=== PATIENT | female | born 1965 | race Caucasian/White ===

== ENCOUNTER 2024-04-08 08:19 | Outpatient (AMB) | payer OTHER, SELFPAY ==
--- NOTE | 2024-04-08 08:20 | MHC.OFFVIS ---
Vital Signs 04/08/24 08:34 Height 5 ft 3 in Weight 150 lb 9.211 oz BMI 26.7 BP 100/62 Blood Pressure Location Lt brachial Position Sitting Respiration 16 Pulse 67 Pulse Source Pulse Oximeter Pulse Oximetry (%) 98 Oxygen Delivery Method Room Air Intake Visit Reasons: RA/ATC MR RECIEVED Intake Note: Patient presents for RA. Lots of joint pain especially right hand, right elbow and right wrist. Feeling very exhausted. Allergies cetirizine [From Zyrtec] Allergy (Mild, Verified 04/08/24 08:26) Nausea fluticasone [From Flonase] Allergy (Verified 04/08/24 08:04) Unknown Penicillins Allergy (Verified 04/08/24 08:04) Unknown Gluten Intolerance Allergy (Uncoded 04/08/24 08:04) Unknown Percocet Allergy (Uncoded 04/08/24 08:04) Unknown Singular Allergy (Uncoded 04/08/24 08:04) Unknown HPI HPI RA/ATC MR RECIEVED: Details: Xeljanz started after last visit. 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 She got covid-19 after vacation with symptom of fatigue. Then her son came home with covid-19 and she was really sick. She took paxlovid. Xeljanz was held for a few weeks. She has now been on Xeljanz consistently for at least 2 and half months. Unable to lift using right hand. Unable to bend right hand. Left hand is weak unable to vegetable picker pen and hold it. Pain in multiple areas in her shoulders, elbows. Knees are swollen. Celebrex caused nausea, rhinorhea, diarrhea, gassiness and abdominal pain/cramping. Review of Systems Const All systems reviewed & are unremarkable except as noted in HPI and below Physical Exam Vital Signs: Last Vital Signs Pulse 67 04/08/24 08:34 Resp 16 04/08/24 08:34 BP 100/62 04/08/24 08:34 Pulse Ox 98 04/08/24 08:34 Oxygen Delivery Method Room Air 04/08/24 08:34 BMI result Body Mass Index 26.7 Const Other: General: Comfortable CVS: RRR Respiratory: clear to auscultation bilaterally. Good respiratory effort Skin: No lesions seen MSK: Tender to palpate bilateral MCPs, PIP knees, wrists. She has fused right wrist. Limited mobility of left wrist due to pain. Tender elbows, shoulders, knees, ankles, MTPs. Synovitis present in bilateral knees right worse than left. She has good range of motion of her elbows and her shoulders. Knee flexion is limited to 60 degrees due to pain. Results Reviewed Results Reviewed: Results from [facility] reviewed. Labs from October and 11/30/2023 reviewed. X-ray right wrist 2023 reviewed. Assessment & Plan Assessment & Plan (1) Rheumatoid arthritis: Comment: History of seropositive rheumatoid arthritis with rheumatoid factor 41 and anti CCP antibody 113. Polyarthritis. Methotrexate started 09/29/2021 to present. She has been on Humira 01/30/2022 to 05/01/2022, Inflectra 07/02/2022 to 07/31/2023, Actemra 08/31/2023 to 11/30/2023. Xeljanz 12/31/2023 to present. She has been consistently on Xeljanz for 2 and half months. Need more time for full effectiveness. She has had more relief with addition of nabumetone recently but it wears off after 10 hours. X-ray of right wrist was reviewed with patient, which revealed intra-articular bodies vs. chondrocalcinosis. MRI was ordered by provider at the [facility] for further evaluation. Code(s): M06.9 - Rheumatoid arthritis, unspecified Category: Medical Plan: Increase nabumetone 750 mg b.i.d. 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 Orders: Orders Alanine Aminotransferase 1 Month M06.9 - Rheumatoid arthritis, unspecified, Z79.899 - Other terminologist (current) drug therapy Aspartate Amino Transferase 1 Month M06.9 - Rheumatoid arthritis, unspecified, Z79.899 - Other nursing home (current) drug therapy Creatinine 1 Month M06.9 - Rheumatoid arthritis, unspecified, Z79.899 - Other terminologist (current) drug therapy Hepatitis B,C Profile 1 Month M06.9 - Rheumatoid arthritis, unspecified, Z79.899 - Other nursing home (current) drug therapy T Spot TB 1 Month M06.9 - Rheumatoid arthritis, unspecified, Z79.899 - Other nursing home (current) drug therapy Lipid Panel 1 Month M06.9 - Rheumatoid arthritis, unspecified, Z79.899 - Other terminologist (current) drug therapy C Reactive Protein 1 Month M06.9 - Rheumatoid arthritis, unspecified, Z79.899 - Other nursing home (current) drug therapy Complete Blood Count Auto Diff 1 Month M06.9 - Rheumatoid arthritis, unspecified, Z79.899 - Other terminologist (current) drug therapy Erythrocyte Sedimentation Rate 1 Month M06.9 - Rheumatoid arthritis, unspecified, Z79.899 - Other nursing home (current) drug therapy Medications: New nabumetone Take 1 tablet BID with food 750 mg PO BID 60 tabs 2RF Coding Level of Care Code Est Pt Level 4 (16400) Complex EM visit Add On G2211 Diagnoses Rheumatoid arthritis M06.9 Other terminologist (current) drug therapy Z79.899
[2024-04-08 08:34] VITALS: BP 100/62; PULSE 67; RESP 16; O2SAT 98; BMI 26.7
== END 2024-04-08 09:13 | disposition home or self-care (01) ==
PROVIDERS: PCP Internal Medicine; Visit Provider Internal Medicine Rheumatology
DX: M06.9 Rheumatoid arthritis, unspecified (principal); Z79.899 Other long term (current) drug therapy
CPT/HCPCS: 99214

== ENCOUNTER → 2024-04-08 08:19 | Outpatient (BNVA) | payer OTHER, SELFPAY | PROVIDERS: PCP Internal Medicine; Visit Provider Internal Medicine Rheumatology ==

== ENCOUNTER → 2024-05-19 07:57 | Outpatient (BNVA) | payer OTHER, SELFPAY | PROVIDERS: PCP Internal Medicine | DX: Z71.89 Other specified counseling (principal) ==

== ENCOUNTER 2024-05-19 16:43 | Outpatient (REF) | payer OTHER, SELFPAY ==
[2024-05-19 17:09] LABS: MANUAL DIFF FLAG NO
[2024-05-19 17:41] LABS: Basophils Percent Auto 0.4 % (0-2); Eosinophils Absolute Auto 0.1 X10*3/uL (0.0-0.4); Eosinophils Percent Auto 0.6 % (0-4); Hematocrit 38.6 % (37.0-47.0); Hemoglobin 12.7 g/dl (12.0-16.0); Imm Gran Abs Auto 0.02 X10*3/uL (0.00-0.03); Imm Gran Pct Auto 0.3 % (0.0-0.4); Lymphocytes Absolute Auto 1.4 X10*3/uL (1.2-4.9); Lymphocytes Percent Auto 17.7 % (20-40); Mean Corpuscular HGB Conc 32.9 g/dl (31.0-35.0); Mean Corpuscular Hemoglobin 32.4 pg (27.0-33.0); Mean Corpuscular Volume 98.5 fL (80.0-98.0); Mean Platelet Volume 10.4 fL (9.4-12.3); Monocytes Absolute Auto 0.4 X10*3/uL (0.1-1.2); Monocytes Percent Auto 5.3 % (2-11); Neutrophils Percent Auto 75.7 % (45-73); Platelet Count 264 X10*3/uL (160-400); Red Blood Count 3.92 X10*6/uL (4.20-5.50); Red Cell Distribution Width 13.2 % (11.0-16.0); White Blood Count 7.9 X10*3/uL (4.8-10.8)
[2024-05-19 18:09] LABS: Alanine Aminotransferase 31 U/L (0-31); Aspartate Amino Transferase 29 U/L (5-31); C Reactive Protein 0.15 mg/dL (< or = 0.50); Cholesterol 237 mg/dL (<200); Estimated Glomerular Filt Rate > 60; HDL Cholesterol 91 mg/dL (>40); LDL Cholesterol Calculated 126 mg/dL (<100); Triglycerides 104 mg/dL (<150)
[2024-05-19 18:36] LABS: Vitamin B12 452 pg/mL (200-900)
[2024-05-19 19:03] LABS: Erythrocyte Sedimentation Rate 14 MM/HR (0-20)
[2024-05-20 09:38] LABS: HBS Num1 28.68 mIU/mL (0-7.99); HBc Num1 0.07 S/CO (0.00-0.79); HBsAGNum1 0.34 S/CO (0.00-0.99); Hepatitis B Core Antibody Nonreactive (Nonreactive); Hepatitis B Surface Antigen Negative (Negative); ~Hepatitis B Surface Antibody REACTIVE (Nonreactive); ~Hepatitis C Antibody Nonreactive (Nonreactive)
[2024-05-22 02:52] LABS: TS Negative Control Passed; TS Panel A 1; TS Panel B 0; TS Positive Control Passed; TSpotTB Negative (Negative)
[2024-05-22 15:54] LABS: Transglutaminase IgA <1.0 U/mL
== END 2024-05-19 16:44 | disposition home or self-care (01) ==
LOC: HO.LAB 16:43
PROVIDERS: PCP Internal Medicine; Visit Provider Internal Medicine Rheumatology
DX: M06.9 Rheumatoid arthritis, unspecified (principal); Z79.899 Other long term (current) drug therapy
CPT/HCPCS: 36415; 80061; 82306; 82565; 82607; 84450; 84460; 85025; 85652; 86140; 86364; 86481; 86704; 86706; 86803; 87340

== ENCOUNTER 2024-05-27 08:19 | Outpatient (AMB) | payer OTHER, SELFPAY ==
--- NOTE | 2024-05-27 08:21 | A.OFFVIS_ITS ---
Vital Signs 05/27/24 08:22 Height 5 ft 3 in Weight 155 lb BMI 27.5 BP 102/62 Blood Pressure Location Lt brachial Position Sitting Pulse 64 Pulse Source Pulse Oximeter Pulse Oximetry (%) 99 Oxygen Delivery Method Room Air Intake Visit Reasons: wrist pain Intake Note: Patient presents for follow up on wrist pain. She states her left shoulder has been acting up since she went lower on the prednisone. Allergies cetirizine [From Zyrtec] Allergy (Mild, Verified 05/27/24 08:25) Nausea fluticasone [From Flonase] Allergy (Verified 05/27/24 08:25) Unknown Penicillins Allergy (Verified 05/27/24 08:25) Unknown Gluten Intolerance Allergy (Uncoded 05/27/24 08:25) Unknown Percocet Allergy (Uncoded 05/27/24 08:25) Unknown Singular Allergy (Uncoded 05/27/24 08:25) Unknown HPI HPI wrist pain: Details: She is experiencing increased pain with lowering prednisone dose to 5 mg daily in the last couple of days. She is having difficulty with ADLs and sign language. She communicates with sign language with her and at work. She was unable to drive using her right hand because of pain. On prednisone 15 mg daily she was better able to tolerate pain and function. She has had 2 injections of Enbrel. She is unable to drive longer than 30 minutes. After she was driven to [place] for required meeting at work and a 10 hour day, she had increased exhaustion and exacerbation of pain in her joints that lasted over a day. She reports that the pain was so intense that she was crying. She is on omeprazole while she is on prednisone to prevent GERD symptoms. She is planning to have EGD and colonoscopy. When she is not on prednisone she is not experiencing GERD symptoms. She had presented to [facility] with nausea and vomiting. She had CT scan of abdomen/pelvis, which revealed incidental finding of possible kidney cyst. She has currently having workup with an ultrasound. Review of Systems Const All systems reviewed & are unremarkable except as noted in HPI and below Physical Exam Vital Signs: Last Vital Signs Pulse 64 05/27/24 08:22 BP 102/62 05/27/24 08:22 Pulse Ox 99 05/27/24 08:22 Oxygen Delivery Method Room Air 05/27/24 08:22 BMI result Body Mass Index 27.5 Const Other: General: Comfortable CVS: RRR Respiratory: clear to auscultation bilaterally. Good respiratory effort Skin: No lesions seen MSK: Tender right wrists on palpation. She has synovitis of right wrist. Flexion and extension of right wrist produces pain. Office Procedures AMB Joint Injection/Aspiration Joint Injection/Aspiration Details: Right wrist Prep: site was prepped using aseptic technique Injected: 20 mg of, Kenalog, with 0.5 mL of and 1% plain lidocaine Procedure: The patient tolerated the procedure well. Postprocedure protocol was discussed with patient. Coding 01633 - Medium joint Procedure code (CPT) selection complete Office Meds lidocaine (PF) 10 mg/mL (1 %) injection solution Performing Provider: Karson Beck MD Performing Location: [facility] [place] [facility] Administered by: Karson Beck MD on 05/27/24 22:22 Dose Route Admin Location Dispensed Lot Number Expiration Date [facility] Matrix Bath Attendant 5 mg Infiltration 2 mL [id number] [facility] Kenalog 40 mg/mL suspension for injection Performing Provider: Karson Beck MD Performing Location: [facility] [place] [facility] Administered by: Karson Beck MD on 05/27/24 22:22 Dose Route Admin Location Dispensed Lot Number Expiration Date [facility] Matrix Bath Attendant 20 mg intra-articular 1 mL AP [id number] [employer] Assessment & Plan Assessment & Plan (1) Rheumatoid arthritis: Comment: History of seropositive rheumatoid arthritis with rheumatoid factor 41 and anti CCP antibody 113. Polyarthritis. Methotrexate started 09/29/2021 to present. She has been on Humira 01/30/2022 to 05/01/2022, Inflectra 07/02/2022 to 07/31/2023, Actemra 08/31/2023 to 11/30/2023. Xeljanz 12/31/2023 to 05/2024. Enbrel 05/2024-present. She had initial benefit on prednisone course but has had uncontrolled right wrist pain. MRI of right wrist results were reviewed, which revealed active inflammatory arthritis. We discussed risks involved with intra- articular cortisone injection including worsening hyperpigmentation of skin, which patient has had as side effect from a past cortisone injection. There is also risk of fat atrophy. We discussed considering surgical consultation for wrist fusion. Patient would like to proceed with right wrist intra-articular cortisone injection. She recently started Enbrel and needs more time for full effectiveness. I hope that with right wrist intra-articular cortisone injection, she will have a decreased requirement for systemic corticosteroid t reatment and she will be able to taper off prednisone in a few days. Code(s): M06.9 - Rheumatoid arthritis, unspecified Category: Medical Plan: Patient received right wrist intra-articular cortisone injection I will be preparing a letter for work accommodation for patient She will continue prednisone 5 mg daily for 3 more days then discontinue it Lab requisition given to patient to have labs in 1 month after starting Enbrel for drug monitoring on high-risk medication Return to clinic in 3 months (2) Other fci (current) drug therapy: Code(s): Z79.899 - Other fci (current) drug therapy Category: Medical Plan: See above Orders: Orders Alanine Aminotransferase 1 Month Z79.60 - ocean transportation intermediary (current) use of unspecified immunomodulators and immunosuppressants Aspartate Amino Transferase 1 Month Z79.60 - ocean transportation intermediary (current) use of unspecified immunomodulators and immunosuppressants Complete Blood Count Auto Diff 1 Month Z79.60 - ocean transportation intermediary (current) use of unspecified immunomodulators and immunosuppressants Creatinine 1 Month Z79.60 - halfway (current) use of unspecified immunomodulators and immunosuppressants AMB Joint Injection/Aspiration Today M06.9 - Rheumatoid arthritis, unspecified Coding Level of Care Code Est Pt Level 4 (55188) Complex EM visit Add On G2211 Diagnoses Rheumatoid arthritis M06.9 Other terminal makeup operator (current) drug therapy Z79.899 CPT Codes Coding - 37291 Medium joint: 69544 - Medium joint ([id number]) Time Spent (min) 25
[2024-05-27 08:22] VITALS: BP 102/62; PULSE 64; O2SAT 99; BMI 27.5
== END 2024-05-27 09:22 | disposition home or self-care (01) ==
PROVIDERS: PCP Internal Medicine; Visit Provider Internal Medicine Rheumatology
DX: M06.09 Rheumatoid arthritis without rheumatoid factor, multiple sites (principal); Z79.899 Other long term (current) drug therapy; M25.531 Pain in right wrist
CPT/HCPCS: 20605; 99214

== ENCOUNTER → 2024-05-27 08:19 | Outpatient (BNVA) | payer OTHER, SELFPAY | PROVIDERS: PCP Internal Medicine; Visit Provider Internal Medicine Rheumatology | DX: M06.9 Rheumatoid arthritis, unspecified (principal); M25.531 Pain in right wrist; Z79.60 Long term (current) use of unspecified immunomodulators and immunosuppressants | CPT/HCPCS: 20605; J2003; J3300 ==

== ENCOUNTER 2024-08-11 08:36 | Outpatient (AMB) | payer OTHER, SELFPAY ==
[2024-08-11 08:40] VITALS: BP 120/70; PULSE 66; O2SAT 97; BMI 28.5
--- NOTE | 2024-08-11 08:40 | MHC.OFFVIS ---
Vital Signs 08/11/24 08:40 Height 5 ft 3 in Weight 160 lb 11.472 oz BMI 28.5 BP 120/70 Blood Pressure Location Lt brachial Position Sitting Pulse 66 Pulse Source Pulse Oximeter Pulse Oximetry (%) 97 Oxygen Delivery Method Room Air Intake Visit Reasons: f/u appt Intake Note: Patient presents for RA follow up. Patient complains of pain in her body, has not been feeling well. Allergies cetirizine [From Zyrtec] Allergy (Mild, Verified 05/27/24 08:25) Nausea fexofenadine [From Brittany] Allergy (Mild, Verified 08/11/24 08:45) Nausea fluticasone [From Flonase] Allergy (Verified 05/27/24 08:25) Unknown Penicillins Allergy (Verified 05/27/24 08:25) Unknown alaway drops Allergy (Mild, Uncoded 08/11/24 08:45) nausea,headache, dizziness Gluten Intolerance Allergy (Uncoded 05/27/24 08:25) Unknown Percocet Allergy (Uncoded 05/27/24 08:25) Unknown Singular Allergy (Uncoded 05/27/24 08:25) Unknown HPI HPI f/u appt: Details: Left shoulder pain>R shoulder pain. Waking up at night. She is having pain in her neck because of shoulder pain. Knees are still swollen. 50% benefit on enbrel. She felt better when she was on Inflectra. 5/10 intensity pain She has increased fatigue and joint pain since influenza virus 3 months ago. She feels like she has car sick. 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 She she continues to take nabumetone. Nabumetone does not provide relief as prednisone. She had benefit with right wrist cortisone injection. She is planning surgery for right foot neuroma tomorrow. She held Enbrel and methotrexate this weekend. She will be resuming DMARDs next weekend. Review of Systems Const All systems reviewed & are unremarkable except as noted in HPI and below Physical Exam Vital Signs: Last Vital Signs Pulse 66 08/11/24 08:40 BP 120/70 08/11/24 08:40 Pulse Ox 97 08/11/24 08:40 Oxygen Delivery Method Room Air 08/11/24 08:40 BMI result Body Mass Index 28.5 Const Other: General: Comfortable CVS: RRR Respiratory: clear to auscultation bilaterally. Good respiratory effort Skin: No lesions seen MSK: Tender to palpate bilateral MCPs, PIP, wrists, elbows, shoulders, left IP. She has fused right wrist. Synovitis present in bilateral knees right worse than left. Right shoulder range of motion is normal. Left shoulder internal rotation is limited due to pain. Knee flexion is limited to 60 degrees due to pain. Bilateral knee, ankle tenderness and MTP tenderness. Assessment & Plan Assessment & Plan (1) Rheumatoid arthritis: Comment: She has had partial benefit on Enbrel. CDAI 27 high disease activity. We discussed treatment with Rinvoq. Discussed side effects, benefits and drug monitoring. We also discussed infection risk. 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 Polyarthritis. Methotrexate started 09/29/2021 to present. She has been on Humira 01/30/2022 to 05/01/2022, Inflectra 07/02/2022 to 07/31/2023, Actemra 08/31/2023 to 11/30/2023. Xeljanz 12/31/2023 to 05/2024. Enbrel 05/2024-present. She had initial benefit on prednisone course but has had uncontrolled right wrist pain. MRI of right wrist results were reviewed, which revealed active inflammatory arthritis. We discussed risks involved with intra-articular cortisone injection including worsening hyperpigmentation of skin, which patient has had as side effect from a past cortisone injection. There is also risk of fat atrophy. Right wrist cortisone injection 05/2023 provided relief. Enbrel 05/2023-partial benefit. Code(s): M06.9 - Rheumatoid arthritis, unspecified Category: Medical Plan: She will return after surgery on her right foot week of August 31 for nurse visit for Depo-Medrol 100 mg IM. She will then discontinue nabumetone Labs from 07/07/2024 reviewed. Elanavoama PA will be process. She will have labs CBC, creatinine, AST, ALT prior to starting Rinvoq. Rinvoq we will replace Enbrel Continue Rasuvo 25 mg once weekly Continue leucovorin 10 mg once weekly Return to clinic in 3 months (2) Other intermediate (current) drug therapy: Code(s): Z79.899 - Other intermediate (current) drug therapy Category: Medical Plan: See above Coding Level of Care Code Est Pt Level 4 (57440) Complex EM visit Add On G2211 Diagnoses Rheumatoid arthritis M06.9 Other joint terminal attack controller (current) drug therapy Z79.899
== END 2024-08-11 09:50 | disposition home or self-care (01) ==
LOC: HO.RHES 08:37
PROVIDERS: PCP Internal Medicine; Visit Provider Internal Medicine Rheumatology
DX: M06.9 Rheumatoid arthritis, unspecified (principal); Z79.899 Other long term (current) drug therapy
CPT/HCPCS: 99214

== ENCOUNTER → 2024-09-02 08:18 | Outpatient (BNVA) | payer OTHER, SELFPAY | PROVIDERS: PCP Internal Medicine; Visit Provider Student in an Organized Health Care Education/Training Program | DX: M06.9 Rheumatoid arthritis, unspecified (principal) | CPT/HCPCS: 96372; J1010 ==

== ENCOUNTER 2024-11-17 08:12 | Outpatient (AMB) | payer OTHER, SELFPAY ==
--- OUTSIDE RECORDS SUMMARY | 2024-11-17 08:15 | XMS_ITS | Clinical Summary ---
Author Organization [facility] Address [address] [place] [id number] Phone Care Team Providers Care Rehab Nursing Tech Name Role Phone Jossie Hartley MD Primary Care Provider [phone] Allergies Active Allergy Reactions Criticality Noted Date Comments Loratadine Nausea Only Low 07/28/2024 Erythromycin Nausea And Vomiting Low 07/28/2024 Ibuprofen GI intolerance Low 07/29/2024 Penicillins Anaphylaxis High 07/28/2024 Cetirizine Nausea And Vomiting Low 07/28/2024 Medications methotrexate 2.5 mg tablet Take by mouth 1 (one) time per week Follow directions carefully, and ask to explain any part you do not understand. Take exactly as directed. Active levothyroxine sodium (TIROSINT) 88 mcg capsule Take 1 capsule (88 mcg total) by mouth 1 (one) time each day. Active atorvastatin (LIPITOR) 20 mg tablet Take 1 tablet (20 mg total) by mouth at bedtime. Active aspirin 81 mg EC tablet Take 1 tablet (81 mg total) by mouth 1 (one) time each day. Active midodrine (PROAMATINE) 2.5 mg tablet Take by mouth. A ctive leucovorin 10 mg tablet Take 1 tablet (10 mg total) by mouth 1 (one) time per week Take with a full glass of water. Active turmeric (CURCUMIN MISC) Acti ve calcium carbonate-vitam in D 500 mg-5 mcg (200 unit) per tablet Take 2 tablets by mouth 1 (one) time each day. Active etanercept (ENBREL) 25 mg/0.5 mL (0.5) injection Inject 0.5 mL (25 mg total) under the skin 1 (one) time per week. Active nabumetone (RELAFEN) 750 mg tablet Take 1 tablet (750 mg total) by mouth 2 (two) times a day. Active Active Problems No known active problems Surgical History Surgery Date Site/Laterality Comments DENTAL SURGERY GYNECOLOGIC CRYOSURGERY CERVIX LESION DESTRUCTION INSERT / REPLACE / REMOVE PACEMAKER COLONOSCOPY BREAST LUMPECTOMY BENIGN OOPHORECTOMY 05/13/1997 - 05/12/1998 Right Medical History Medical History Date Comments Asthma Migraine Hyperlipidemia Hypothyroidism Arthritis Pacemaker Vasovagal syncope Celiac disease Trini-Danlos syndrome Social History Tobacco Use Types Packs/Day Years Used Date Smoking Tobacco: Former Cigarettes Smokeless Tobacco: Never Tobacco Cessation:Counseling Given: Not Answered Interpersonal Safety Answer Date Record ed Physical Abuse 08/12/2024 Verbal Abuse 08/12/2024 Comments Unknown Sex and Gender Information Value Date Recorded Sex Assigned at Female 08/12/2024 6:34 AM EDT Legal Sex Female 10:05 AM EDT Gender Identity Female 08/12/2024 6:34 AM EDT Sexual Orientation Straight 08/12/2024 6: 34 AM EDT Obstetrics History Last Filed Vital Signs Vital Sign Reading Time Taken Comments Blood Pressure 104/72 08/12/2024 10:25 AM EDT Pulse 60 08/12/2024 10:25 AM EDT Temperature 36.5 C (97.7 F) 08/12/2024 10:25 AM EDT Respiratory Rate 14 08/12/2024 9:54 AM EDT Oxygen Saturation 98% 08/12/2024 10:25 AM EDT Inhaled Oxygen Concentration - - Weight 70.3 kg (155 lb) 08/12/2024 7:54 AM EDT Height 160 cm (5' 3 ) 08/12/2024 7:54 AM EDT Body Mass Index 27.46 08/12/2024 7:54 AM EDT Plan of Treatment Health Maintenance Due Date Last Done Comments Breast Cancer Screening 1965 COVID-19 Vaccine (#1) 09/03/1972 DTaP,Tdap,and Td Vaccines (1 - Tdap) 09/03/1986 Hepatitis B Vaccines (1 of 3 - 19+ 3-dose series) 09/03/1986 Cervical Cancer Screening: P ap Smear 09/03/1988 Pneumococcal Vaccine: 50+ Ye ars (1 of 1 - PCV) 09/03/2017 Zoster Vaccines (1 of 2) 09/03/2017 Colorectal Cancer Screening: Colonoscopy 07/27/2024 Depression Screening 07/27/2024 HIV Screening 07/27/2024 Hepatitis C Screening 07/27/2024 Social Influencers of Health Screening 07/27/2024 Influenza Vaccine (#1) 2025 HIB Vaccines Aged Out No longer eligi ble based on patient's age to complete this topic HPV Vaccines Aged Out No longer eligi ble based on patient's age to complete this topic Hepatitis A Vaccines Aged Out No long er eligible based on patient's age to complete this topic IPV Vaccines Aged Out No longer eligi ble based on patient's age to complete this topic MMR Vaccines Aged Out No longer eligi ble based on patient's age to complete this topic Meningococcal ACWY Vaccine Aged Out N o longer eligible based on patient's age to complete this topic Meningococcal B Vaccine Aged Out No l onger eligible based on patient's age to complete this topic RSV Immunization Patients Un brain 20 months Aged Out No longer eligible b ased on patient's age to complete this topic Varicella Vaccines Aged Out No longer eligible based on patient's age to complete this topic Insurance [facility] Care Teams Rehab Nursing Tech Relationship Specialty Start Date End Date Jossie Hartley MD [address] [place] [address], [address] [place] [address] PCP - General Internal Medicine 08/12/24
--- NOTE | 2024-11-17 08:17 | MHC.OFFVIS ---
Vital Signs 11/17/24 08:19 Height 5 ft 3 in Weight 168 lb 4 oz BMI 29.8 BP 120/80 Blood Pressure Location Lt brachial Position Sitting Pulse 64 Pulse Source Pulse Oximeter Pulse Oximetry (%) 99 Oxygen Delivery Method Room Air Intake Visit Reasons: 3 months Intake Note: Patient presents for RA follow up. Allergies cetirizine (From Zyrtec) Allergy (Mild, Verified 11/17/24 08:18) Nausea fexofenadine (From Brittany) Allergy (Mild, Verified 11/17/24 08:18) Nausea fluticasone (From Flonase) Allergy (Verified 11/17/24 08:18) Unknown Penicillins Allergy (Verified 11/17/24 08:18) Unknown alaway drops Allergy (Mild, Uncoded 08/11/24 08:45) nausea,headache, dizziness Gluten Intolerance Allergy (Uncoded 05/27/24 08:25) Unknown Percocet Allergy (Uncoded 05/27/24 08:25) Unknown Singular Allergy (Uncoded 05/27/24 08:25) Unknown HPI HPI 3 months: Details: Improvement 95% of joint pain. She is hiking, swimming and using the treadmill. She was able to use treadmill 45 minutes prior to vacation. Last week she went on vacation and was hiking. She came back with right knee swelling. Yesterday she started experiencing some joint pain in her hands. Left leg lesion removed - benign wart No recent infection. MS 1 minutes Physical Exam Vital Signs: Last Vital Signs Pulse 64 11/17/24 08:19 BP 120/80 11/17/24 08:19 Pulse Ox 99 11/17/24 08:19 Oxygen Delivery Method Room Air 11/17/24 08:19 BMI result Body Mass Index 29.8 Const Other: General: Comfortable CVS: RRR Respiratory: clear to auscultation bilaterally. Good respiratory effort Skin: No lesions seen MSK: Tender to palpate bilateral 2nd MCP, shoulders, R 2-3 PIP, IP, wrist and elbow, L 2nd MCP with chronic synovial thickening, right knee tender and swollen with moderate effusion, MTP tenderness. She has fused right wrist. Normal range of motion of upper extremities and lower extremities Assessment & Plan Assessment & Plan (1) Rheumatoid arthritis: Comment: On Rinvoq and Rasuvo with benefit. She is now more functional with ADLs and activities. CDAI 14 moderate disease activity. She had surgery on right foot in August and is recovering with pain that now shoots up the foot. 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 Polyarthritis. Methotrexate started 09/29/2021 to present. She has been on Humira 01/30/2022 to 05/01/2022, Inflectra 07/02/2022 to 07/31/2023, Actemra 08/31/2023 to 11/30/2023. Xeljanz 12/31/2023 to 05/2024. Enbrel 05/2024-present. She had initial benefit on prednisone course but has had uncontrolled right wrist pain. MRI of right wrist results were reviewed, which revealed active inflammatory arthritis. We discussed risks involved with intra-articular cortisone injection including worsening hyperpigmentation of skin, which patient has had as side effect from a past cortisone injection. There is also risk of fat atrophy. Right wrist cortisone injection 05/2023 provided relief. Enbrel 05/2023-partial benefit. Rinvoq 09/2024- Code(s): M06.9 - Rheumatoid arthritis, unspecified Category: Medical Plan: Labs from 10/08/2024 reviewed for drug monitoring and high-risk medication. Labs due in 6 weeks. Lab requisition given to patient to have done local to her home. Continue Rinvoq 15 mg daily Continue Rasuvo 25 mg once weekly. We will change it to Otrexup SC per insurance requirement. Constantine MONTANO in process. Continue leucovorin 10 mg once weekly depo-medrol 80mg IM today Letter written for airline for reasonable accommodation assistance with carrying her carry-on to airplane and then from airplane to ground transportation Return to clinic in 3 months (2) Other assisted (current) drug therapy: Code(s): Z79.899 - Other assisted (current) drug therapy Category: Medical Plan: See above Orders: Orders Creatinine 6 Weeks M06.9 - Rheumatoid arthritis, unspecified, Z79.899 - Other terminal gauger supervisor (current) drug therapy Complete Blood Count Man Dif 6 Weeks M06.9 - Rheumatoid arthritis, unspecified, Z79.899 - Other assisted (current) drug therapy Alanine Aminotransferase 6 Weeks M06.9 - Rheumatoid arthritis, unspecified, Z79.899 - Other terminal gauger supervisor (current) drug therapy Aspartate Amino Transferase 6 Weeks M06.9 - Rheumatoid arthritis, unspecified, Z79.899 - Other terminal gauger supervisor (current) drug therapy C Reactive Protein 6 Weeks M06.9 - Rheumatoid arthritis, unspecified, Z79.899 - Other assisted (current) drug therapy Erythrocyte Sedimentation Rate 6 Weeks M06.9 - Rheumatoid arthritis, unspecified, Z79.899 - Other assisted (current) drug therapy Medications: Refilled methotrexate (PF) (Otrexup (PF)) 25 mg (0.4 mL) subcut QWEEK 1.6 mL 2RF Discontinued methotrexate (PF) (Rasuvo (PF)) Discontinued Reason: Doctor's Order 25 mg (0.5 mL) subcut QWEEK 2 mL 2RF Coding Level of Care Code Est Pt Level 4 (92993) Complex EM visit Add On G2211 Diagnoses Rheumatoid arthritis M06.9 Other terminal gauger supervisor (current) drug therapy Z79.899
[2024-11-17 08:19] VITALS: BP 120/80; PULSE 64; O2SAT 99; BMI 29.8
== END 2024-11-17 09:04 | disposition home or self-care (01) ==
LOC: HO.RHES 08:13
PROVIDERS: PCP Internal Medicine; Visit Provider Internal Medicine Rheumatology
DX: M06.9 Rheumatoid arthritis, unspecified (principal); Z79.899 Other long term (current) drug therapy
CPT/HCPCS: 99214

== ENCOUNTER → 2024-11-17 08:12 | Outpatient (BNVA) | payer OTHER, SELFPAY | PROVIDERS: PCP Internal Medicine; Visit Provider Internal Medicine Rheumatology | DX: M06.9 Rheumatoid arthritis, unspecified (principal); Z79.899 Other long term (current) drug therapy | CPT/HCPCS: 96372; J1010 ==

== ENCOUNTER 2025-03-04 08:17 | Outpatient (AMB) | payer OTHER, SELFPAY ==
--- NOTE | 2025-03-04 08:21 | MHC.OFFVIS ---
Vital Signs 03/04/25 08:22 Height 5 ft 3 in Weight 186 lb 4.65 oz BMI 33.0 BP 150/100 H Blood Pressure Location Lt brachial Position Sitting Pulse 76 Pulse Source Pulse Oximeter Pulse Oximetry (%) 97 Oxygen Delivery Method Room Air Intake Visit Reasons: 3 Months Intake Note: Patient presents for RA follow up. Accompanied by: Self / Same As Patient Allergies cetirizine (From Zyrtec) Allergy (Mild, Verified 11/17/24 08:18) Nausea fexofenadine (From Brittany) Allergy (Mild, Verified 11/17/24 08:18) Nausea fluticasone (From Flonase) Allergy (Verified 11/17/24 08:18) Unknown Penicillins Allergy (Verified 11/17/24 08:18) Unknown alaway drops Allergy (Mild, Uncoded 08/11/24 08:45) nausea,headache, dizziness Gluten Intolerance Allergy (Uncoded 05/27/24 08:25) Unknown Percocet Allergy (Uncoded 05/27/24 08:25) Unknown Singular Allergy (Uncoded 05/27/24 08:25) Unknown HPI HPI 3 Months: Details: She is unable to workout because she feel sicks with nausea and fatigue. She had to call out of work on Saturday to rest her hands. She spent the time in bed. She is very teary at how her RA has become uncontrolled with the insurance not covering Rasuvo and requiring her to switch to Otrexup. She notices benefit with taking Rasuvo for the last 4 weeks. R foot swelling since neuroma surgery. Swelling in joints are more predominate on right side of her body. Physical Exam Vital Signs: Last Vital Signs Pulse 76 03/04/25 08:22 BP 150/100 H 03/04/25 08:22 Pulse Ox 97 03/04/25 08:22 Oxygen Delivery Method Room Air 03/04/25 08:22 BMI result Body Mass Index 33.0 Const Other: General: Comfortable CVS: RRR Respiratory: clear to auscultation bilaterally. Good respiratory effort Skin: No lesions seen MSK: Tender to palpate bilateral MCPs, PIPs, wrists, elbows, shoulders, knees, ankles, MTPs with diffuse allodynia of all extremities. She has synovitis of right wrist, bilateral knees right worse than left, right MTPs. Normal range of motion of upper extremities and lower extremities Office Meds methylprednisolone acetate 40 mg/mL suspension for injection Performing Provider: Karson Beck MD [place] [facility] Administered by: Danuta Ventura RN on 03/04/25 09:23 Dose Route Admin Location Dispensed Lot Number Expiration Date NDC Affiliate Marketing Coordinator 20 mg IM left upper arm 1 mL [id number] 04/11/26 [address]-2 [employer] Total Dispensed Waste 1 mL 50 % methylprednisolone acetate 80 mg/mL suspension for injection Performing Provider: Karson Beck MD Performing [place] [facility] Administered by: Danuta Ventura RN on 03/04/25 09:23 Dose Route Admin Location Dispensed Lot Number Expiration Date ND Affiliate Marketing Coordinator 80 mg IM left upper arm 1 mL [id number] 05/12/26 [address]-0 [employer] Total Dispensed Waste 1 mL 0 % Assessment & Plan Assessment & Plan (1) Rheumatoid arthritis: Comment: She relapsed when insurance denied Rasuvo and she was forced to switch to Otrexup. High disease activity. We discussed vagus nerve stimulation (VNS) for treatment of rheumatoid arthritis who have not responded to DMARD therapy. 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 I recommend treating her current flare with Depo-Medrol and then reassessing how long benefit last. If she relapse on Rasuvo and Rinvoq, I will reach out to [facility] [place] to enquire if the would consider Cat for the VNS. 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 Polyarthritis. Methotrexate started 09/29/2021 to present. Failed Humira 01/30/2022 to 05/01/2022, Inflectra 07/02/2022 to 07/31/2023, Actemra 08/31/2023 to 11/30/2023, Xeljanz 12/31/2023 to 05/2024, and Enbrel 05/2024-present. She had initial benefit on prednisone course but has had uncontrolled right wrist pain. MRI of right wrist results were reviewed, which revealed active inflammatory arthritis. We discussed risks involved with intra-articular cortisone injection including worsening hyperpigmentation of skin, which patient has had as side effect from a past cortisone injection. There is also risk of fat atrophy. Right wrist cortisone injection 05/2023 provided relief. Enbrel 05/2023-partial benefit. Rinvoq 09/2024-. Flare when Rasuvo changed to Otrexup due to insurance not covering Rasuvo 2024. Code(s): M06.9 - Rheumatoid arthritis, unspecified Category: Medical Qualifiers: Rheumatoid arthritis location: multiple sites Rheumatoid factor presence: with rheumatoid factor Qualified Code(s): M05.79 - Rheumatoid arthritis with rheumatoid factor of multiple sites without organ or systems involvement Plan: Labs for drug monitoring and high-risk medication UTD. Lab rx given to patient to have labs done in 3 months [facility] local to her home Continue Rinvoq 15 mg daily Continue Rasuvo 25 mg once weekly Continue leucovorin 10 mg once weekly depo-medrol 100mg IM today Consider right wrist x-ray if she continues to have wrist pain after depomedrol to evalute for alternative pathologist contributing wrist pain Return to clinic in 3 months (2) Other subsorter (current) drug therapy: Code(s): Z79.899 - Other long-term (current) drug therapy Category: Medical Plan: See above Orders: Orders Complete Blood Count Auto Diff 3 Months Z79.899 - Other subsorter (current) drug therapy Alanine Aminotransferase 3 Months Z79.899 - Other subsorter (current) drug therapy Aspartate Amino Transferase 3 Months Z79.899 - Other subsorter (current) drug therapy Creatinine 3 Months Z79.899 - Other long-term (current) drug therapy AMB Methylprednisolone Acetate Injection 03/04/25 M06.9 - Rheumatoid arthritis, unspecified C Reactive Protein 3 Months Z79.899 - Other long-term (current) drug therapy Erythrocyte Sedimentation Rate 3 Months Z79.899 - Other long-term (current) drug therapy Coding Level of Care Code Est Pt Level 4 (60671) Complex EM visit Add On G2211 Diagnoses Rheumatoid arthritis involving multiple sites with positive rheumatoid factor M05.79 Rheumatoid arthritis location: multiple sites Rheumatoid factor presence: with rheumatoid factor Other long-term (current) drug therapy Z79.899
[2025-03-04 08:22] VITALS: BP 150/100; PULSE 76; O2SAT 97; BMI 33.0
--- OUTSIDE RECORDS SUMMARY | 2025-03-04 08:37 | XMS_ITS | Encounter Summary ---
Author Organization [facility] Address [address] [place] [id number] Phone Care Team Providers Care Fence Gate Assembler Name Role Phone Lula Harvey MD Primary Care Prov ider Naeem, Jossie A Primary Care Provider [phone] Hartley, Jossie A MD Unavailable [phone] Encounter Details Date Type Department Care Team (Late st Contact Info) Description 06/15/2019 Procedure Pass [facility] Endoscopy Admitting Dept Virtual Department [address] [place] [address] Social History Tobacco Use Types Packs/Day Years Used Date Smoking Tobacco: Former Cigarettes Q uit: 1991 Smokeless Tobacco: Never Alcohol Use Standard Drinks/Week Comments No 0 (1 standard drink = 0.6 oz pur e alcohol) Comments Unknown Sex and Gender Information Value Date Recorded Sex Assigned at Female 01/23/2023 4:04 PM EDT Legal Sex Female 7:23 PM EST Gender Identity Female 01/23/2023 4:04 PM EDT Sexual Orientation Choose not to disclose 2023 7:10 AM EST documented as of this encounter Plan of Treatment Not on file documented as of this encounter Visit Diagnoses Not on filedocumented in this encounter Additional Health Concerns Infection Onset Date Last Indicated Resolved Time CoV-Presumed 04/22/2022 04/22/2022 05/13/2022 1:21 AM EST COVID-19 10/29/2022 10/29/2022 11/19/2022 1:21 AM EDT COVID-19 01/04/2024 01/04/2024 01/25/2024 1:22 AM EDT CoV-Risk 06/03/2024 06/03/2024 06/14/2024 2:34 AM EST Influenza A 06/03/2024 06/03/2024 06/10/2024 1:22 AM EST documented as of this encounter Care Teams Fence Gate Assembler Relationship Specialty Start Date End Date Lula Harvey MD [email or web address] PCP - General Family Medicine 10/16/17 01/31/22 Jossie Hartley MD [address] [place] [id number] PCP - General Internal Medicine 02/01/22 Jossie Hartley MD [address] [place] [phone] Insurance Assigned Provider 05/19/22 03/23/23 documented as of this encounter Additional Source Comments The information contained in this document represents components of the legal health record. It is not the complete legal health record.[facility]
--- OUTSIDE RECORDS SUMMARY | 2025-03-04 08:37 | XMS_ITS | Encounter Summary ---
Author Organization [facility] Address [address] [place] [address] [place] [phone] Phone Care Team Providers Care Tobacco Educator Name Role Phone Jossie Hartley MD Primary Care Provider [phone] Encounter Details Date Type Department Care Team ([facility] st Contact Info) Description 06/22/2024 Procedure Pass [facility] Endoscopy Admitting Dept Virtual Department [address] [place] [address] Social History Tobacco Use Types Packs/Day Years Used Date Smoking Tobacco: Former Cigarettes 1 7 1991 Smokeless Tobacco: Never Alcohol Use Standard Drinks/Week Comments No 0 (1 standard drink = 0.6 oz pur e alcohol) Child or Family Care Answer Date Record ed Do you have problems with on e of the following making it difficult for you to work, study, or receive health care? No 07/02/2023 Education Answer Date Recorded Are you interested in help w ith more adult education (for example, completing high school, GED, job training, learning the [place] language, technical skills, or developing parenting skills)? No 07/02/2023 Are you concerned about learning? Not on file 07/02/2023 No 07/02/2023 Yes 07/02/2023 Food Answer Date Recorded Within the past 6 months we worried whether our food would run out before we got money to buy more. Never True 07/02/2023 Within the past 6 months the food we bought just didn't last and we didn't have enough money to get more. Never True Residential Stability Answer Date Recor ded What is your housing situation today? I have jake jacob 07/02/2023 How many times have you move d in the past 12 months? Zero (I did not move) 07/02/2023 Paying for Meds Answer Date Recorded Do you have trouble paying for medicines? No 07/02/2023 Paying Utility Bills Answer Date Record ed Do you have trouble paying your heating or elect ricity bill? Yes 07/02/2023 Transportation Answer Date Recorded Has the lack of transportati on kept you from medical appointments or from getting medications? No 07/02/2023 Unemployment Answer Date Recorded Are you currently unemployed or working on a part-time or temporary basis, and looking for work? No 05/25/2022 Digital Access Answer Date Recorded No 07/02/2023 Yes 07/02/2023 Do you have reliable internet access at home? Ye s 07/02/2023 Do you have a device (e.g., phone, tablet, computer) with a working camera? Yes 07/02/2023 Intimate Partner Violence Answer Date R ecorded Are you denied basic needs s uch as food, clothing, or medical care? No 06/22/2024 In the past 12 months have y ou been in a relationship with a person who hurts, threatens, or tries to control you? No 06/22/2024 Are you denied basic needs s uch as food, clothing, or medical care? No 06/22/2024 In the past 12 months have y ou been in a relationship with a person who hurts, threatens, or tries to control you? No 06/22/2024 Comments No Sex and Gender Information Value Date Recorded [...] filedocumented in this encounter Additional Health Concerns Assessment Noted Time PHQ-2 Depression Total Score: 1 07/02/19 24 6:42 AM EST documented as of this encounter Care Teams Tobacco Educator Relationship Specialty Start Date End Date Jossie Hartley MD [address] [place] [address], [address] [place] [address] (work) [email or web address] PCP - General Internal Medicine 02/01/22 documented as of this encounter Additional Source Comments The information contained in this document represents components of the legal health record. It is not the complete legal health record.[facility]
--- OUTSIDE RECORDS SUMMARY | 2025-03-04 08:37 | XMS_ITS | Encounter Summary ---
Author Organization [facility] Address [address] [place] [address] Phone Care Team Providers Care Process Trainer Name Role Phone Naeem, Jossie A Primary Care Provider [phone] Lula Harvey MD Primary Care Prov ider Hartley, Jossie A Primary Care Provider [phone] Naeem, Jossie A Unavailable [phone] Encounter Details Date Type Department Care Team (Late st Contact Info) Description 05/21/2017 Ancillary Orders Virtual Department [address] [place] [address] Lula Harvey MD [address] [place] [id number] [email or web address] Visit for screening mammogram; Asymptomatic premature menopause Social History Tobacco Use Types Packs/Day Years Used Date Smoking Tobacco: Never Assessed Comments Unknown Sex and Gender Information Value Date Recorded Sex Assigned at Female 01/23/2023 4:04 PM EDT Legal Sex Female 7:23 PM EST Gender Identity Female 01/23/2023 4:04 PM EDT Sexual Orientation Choose not to disclose 2023 7:10 AM EST documented as of this encounter Plan of Treatment Not on file documented as of this encounter Visit Diagnoses Diagnosis Visit for screening mammogram Asymptomatic premature menopause documented in this encounter Additional Health Concerns Infection Onset Date Last Indicated Resolved Time CoV-Presumed 04/22/2022 04/22/2022 05/13/2022 1:21 AM EST COVID-19 10/29/2022 10/29/2022 11/19/2022 1:21 AM EDT COVID-19 01/04/2024 01/04/2024 01/25/2024 1:22 AM EDT CoV-Risk 06/03/2024 06/03/2024 06/14/2024 2:34 AM EST Influenza A 06/03/2024 06/03/2024 06/10/2024 1:22 AM EST documented as of this encounter Care Teams Process Trainer Relationship Specialty Start Date End Date Jossie Hartley MD [address] [place] [phone] PCP - General 05/16/17 10/15/17 Lula Harvey MD [address] [place] [phone] [email or web address] PCP - General Family Medicine 10/16/17 01/31/22 Jossie Hartley MD [address] [place] [phone] PCP - General Internal Medicine 02/01/22 Jossie Hartley MD [address] [place] [phone] Insurance Assigned Provider 05/19/22 03/23/23 documented as of this encounter Additional Source Comments The information contained in this document represents components of the legal health record. It is not the complete legal health record.[facility]
--- OUTSIDE RECORDS SUMMARY | 2025-03-04 08:37 | XMS_ITS | Encounter Summary ---
Author Organization [facility] Address [address] [place] [address] [place] [address] Phone Care Team Providers Care Early Childhood Coordinator Name Role Phone Jossie Hartley MD Primary Care Provider [phone] Encounter Details Date Type Department Care Team (Late st Contact Info) Description 05/02/2024 Procedure Pass [facility], Ct Scan - [address] [address] Social History Tobacco Use Types Packs/Day Years [...] high school, GED, job training, learning the Slov[place] language, technical skills, or developing parenting skills)? [...] your housing situation today? I have jake sing 07/02/2023 How many times have you move [...] as food, clothing, or medical care? No 05/02/2024 In the past 12 months have y ou been in a relationship with a person who hurts, threatens, or tries to control you? No 05/02/2024 Are you denied basic needs s uch as food, clothing, or medical care? No 05/02/2024 In the past 12 months have y ou been in a relationship with a person who hurts, threatens, or tries to control you? No 05/02/2024 Comments No Sex and Gender Information Value Date Recorded Sex Assigned at Female 01/23/2023 4:04 PM EDT Legal Sex Female 7:23 PM EST Gender Identity Female 01/23/2023 4:04 PM EDT Sexual Orientation Choose not to disclose 2023 7:10 AM EST documented as of this encounter Functional Status * Calculated C-SSRS Risk Score (Lifetime/Recent) Answer Date of Assessment Author No Risk Indicated 05/02/2024 6:48 AM Darnell [place] RN * [place] Suicide Severity Rating Scale (Screener/Recent Self-Report) Question Answer Date of Assessment Author 1. Wish to be (Past 1 Month) No 05/02/2024 6:48 AM Darnell [place] RN 2. Non-Specific Active Suicidal Thoughts (Past 1 Month) No 05/02/2024 6:48 AM EST Darnell Winters RN 6. Suicidal Behavior (Lifetime) No 05/02/2024 6:48 AM EST Darnell Winters RN documented as of this encounter Plan of Treatment Not on file documented as of this encounter Visit Diagnoses Not on filedocumented in this encounter Additional Health Concerns Infection Onset Date Last Indicated Resolved Time CoV-Risk 06/03/2024 06/03/2024 06/14/2024 2:34 AM EST Influenza A 06/03/2024 06/03/2024 06/10/2024 1:22 AM EST Assessment Noted Time PHQ-2 Depression Total Score: 1 07/02/19 24 6:42 AM EST documented as of this encounter Care Teams Early Childhood Coordinator Relationship Specialty Start Date End Date Jossie Hartley MD [address] [place] [address], [address] [place] [address] [email or web address] PCP - General Internal Medicine 02/01/22 documented as of this encounter Additional Source Comments The information contained in this document represents components of the legal health record. It is not the complete legal health record.[facility]
--- OUTSIDE RECORDS SUMMARY | 2025-03-04 08:37 | XMS_ITS | Encounter Summary ---
Author Organization [facility] Address [address] [place] [address] [place] [phone] Phone Care Team Providers Care Real Estate Development Manager Name Role Phone Lula Harvey MD Primary Care Prov ider Hartley, Jossie A Primary Care Provider [phone] Hartley, Jossie A MD Unavailable [phone] Encounter Details Date Type Department Care Team (Late st Contact Info) Description 07/24/2019 Ancillary Orders Virtual Department [address] [place] [address] Jeainne Garcia PA [address] [place] [address] [id number] Dyspnea, unspecified type Social History Tobacco Use Types Packs/Day Years [...] as of this encounter Visit Diagnoses Diagnosis Dyspnea, unspecified type documented in this encounter Additional Health Concerns Infection Onset Date Last Indicated Resolved Time CoV-Presumed 04/22/2022 04/22/2022 05/13/2022 1:21 AM EST COVID-19 10/29/2022 10/29/2022 11/19/2022 1:21 AM EDT COVID-19 01/04/2024 01/04/2024 01/25/2024 1:22 AM EDT CoV-Risk 06/03/2024 06/03/2024 06/14/2024 2:34 AM EST Influenza A 06/03/2024 06/03/2024 06/10/2024 1:22 AM EST documented as of this encounter Care Teams Real Estate Development Manager Relationship Specialty Start Date End Date Lula Harvey MD [email or web address] PCP - General Family Medicine 10/16/17 01/31/22 Jossie Hartley MD [address] [place] [address], [address] [place] [id number] PCP - General Internal Medicine 02/01/22 Jossie Hartley MD [address] [place] [address], [address] [place] [id number] [email or web address] Insurance Assigned Provider 05/19/22 03/23/23 documented as of this encounter Additional Source Comments The information contained in this document represents components of the legal health record. It is not the complete legal health record.[facility]
--- OUTSIDE RECORDS SUMMARY | 2025-03-04 08:37 | XMS_ITS | Encounter Summary ---
Author Organization [facility] Address [address] [place] [address] [place] [address] Phone Care Team Providers Care Principal Archaeologist Name Role Phone Jossie Hartley MD Primary Care Provider [phone] Encounter Details Date Type Department Care Team (Latest Contact Info) Description 03/17/2024 Transcribe Orders Virtual Department [address] [place] [address] Mat Talley MD [address] [place] [address] Infection (Primary Dx) Social History Tobacco Use Types Packs/Day Years [...] high school, GED, job training, learning the French language, technical skills, or developing parenting skills)? [...] as food, clothing, or medical care? No 07/02/2023 In the past 12 months have y ou been in a relationship with a person who hurts, threatens, or tries to control you? No 07/02/2023 Are you denied basic needs s uch as food, clothing, or medical care? No 07/02/2023 In the past 12 months have y ou been in a relationship with a person who hurts, threatens, or tries to control you? No 07/02/2023 Comments No Sex and Gender Information Value Date Recorded Sex Assigned at Female 01/23/2023 4:04 PM EDT Legal Sex Female 7:23 PM EST Gender Identity Female 01/23/2023 4:04 PM EDT Sexual Orientation Choose not to disclose 2023 7:10 AM EST documented as of this encounter Plan of Treatment Not on file documented as of this encounter Results * XR WRIST 3 OR MORE VIEWS (RIGHT) (03/18/2024 8:06 AM EST) Anatomical Region Laterality Modality Wrist Right Computed Radiogr aphy 03/18/2024 2:11 PM EST Impressions 03/18/2024 2:13 PM EST No acute osseous abnormality. Mild degenerative changes. Narrative 03/18/2024 2:13 PM EST XR WRIST 3 OR MORE VIEWS (RIGHT) Referring clinician's provided indication for this examination in [facility]: Outside Radiology Order COMPARISON: XR HAND 3 OR MORE VIEWS (RIGHT) ; XR HAND 3 OR MORE VIEWS (BILATERAL) FINDINGS: No acute fracture or dislocation. Mild degenerative changes are present throughout the wrist. Multifocal areas of mineralization predominantly about the radiocarpal joint, possibly intra-articular bodies or chondrocalcinosis. Procedure Note Oh Rosa MD - 03/18/2024 XR WRIST 3 OR MORE VIEWS (RIGHT) Referring clinician's provided indication for this examination in Epic:Outside Radiology Order COMPARISON: XR HAND 3 OR MORE VIEWS (RIGHT) ; XR HAND 3 OR MOREVIEWS (BILATERAL) FINDINGS: No acute fracture or dislocation. Mild degenerative changes are presentthroughout the wrist. Multifocal areas of mineralization predominantlyabout the radiocarpal joint, possibly intra-articular bodies orchondrocalcinosis. IMPRESSION: No acute osseous abnormality. Mild degenerative changes. Mat Talley MD IMG XR UPPER EXTREMITY Final Result documented in this encounter Visit Diagnoses Diagnosis Infection- Primary Unspecified infectious and parasitic diseases Infection Unspecified infectious and parasitic diseases documented in this encounter Additional Health Concerns Infection Onset Date Last Indicated Resolved Time CoV-Risk 06/03/2024 06/03/2024 06/14/2024 2:34 AM EST Influenza A 06/03/2024 06/03/2024 06/10/2024 1:22 AM EST Assessment Noted Time PHQ-2 Depression Total Score: 1 07/02/19 24 6:42 AM EST documented as of this encounter Care Teams Principal Archaeologist Relationship Specialty Start Date End Date Jossie Hartley MD [address] [place] [address], [address] [place] [address] [email or web address] PCP - General Internal Medicine 02/01/22 documented as of this encounter Additional Source Comments The information contained in this document represents components of the legal health record. It is not the complete legal health record.[facility]
--- OUTSIDE RECORDS SUMMARY | 2025-03-04 08:38 | XMS_ITS | Encounter Summary ---
Author Organization [facility] Address [address] [facility] [address] [place] [phone] Phone Care Team Providers Care Cnc Router Operator Name Role Phone Naeem, Jossie A Primary Care Provider [phone] Naeem, Jossie A MD Unavailable [phone] Encounter Details Date Type Department Care Team (Late st Contact Info) Description 05/26/2022 Procedure Pass [facility], [address] [address] Social History Tobacco Use Types Packs/Day Years Used Date Smoking Tobacco: Former Cigarettes 1 11 10 975 - 1991 Smokeless Tobacco: Never Alcohol Use Standard Drinks/Week Comments No 0 (1 standard drink = 0.6 oz pur e alcohol) Child or Family Care Answer Date Record ed Do you have problems with on e of the following making it difficult for you to work, study, or receive health care? No 05/25/2022 Education Answer Date Recorded Are you interested in help w ith more adult education (for example, completing high school, GED, job training, learning the [place] language, technical skills, or developing parenting skills)? No 05/25/2022 Food Answer Date Recorded Within the past 6 months we worried whether our food would run out before we got money to buy more. Never True 05/25/2022 Within the past 6 months the food we bought just didn't last and we didn't have enough money to get more. Never True Residential Stability Answer Date Recor ded What is your housing situation today? I have jake sing 05/25/2022 How many times have you move d in the past 12 months? Zero (I did not move) 05/25/2022 Paying for Meds Answer Date Recorded Do you have trouble paying for medicines? No 05/25/2022 Paying Utility Bills Answer Date Record ed Do you have trouble paying your heating or elect ricity bill? No 05/25/2022 Transportation Answer Date Recorded Has the lack of transportati on kept you from medical appointments or from getting medications? No 05/25/2022 Unemployment Answer Date Recorded Are you currently unemployed or working on a part-time or temporary basis, and looking for work? No 05/25/2022 Comments No Sex and Gender Information Value [...] Infection Onset Date Last Indicated Resolved Time COVID-19 10/29/2022 10/29/2022 11/19/2022 1:21 AM EDT COVID-19 01/04/2024 01/04/2024 01/25/2024 1:22 AM EDT CoV-Risk 06/03/2024 06/03/2024 06/14/2024 2:34 AM EST Influenza A 06/03/2024 06/03/2024 06/10/2024 1:22 AM EST Assessment Noted Time PHQ-2 Depression Total Score: 2 05/25/19 3:29 PM EST documented as of this encounter Care Teams Cnc Router Operator Relationship Specialty Start Date End Date Jossie Hartley MD [address] [place] [address], [address] [place] [address] [email or web address] PCP - General Internal Medicine 02/01/22 Jossie Hartley MD [address] [place] [address], [address] [place] [address] [email or web address] Insurance Assigned Provider 05/19/22 03/23/23 documented as of this encounter Additional Source Comments The information contained in this document represents components of the legal health record. It is not the complete legal health record.[facility]
--- OUTSIDE RECORDS SUMMARY | 2025-03-04 08:38 | XMS_ITS | Encounter Summary ---
Author Organization [facility] Address [address] [place] [address] Phone Care Team Providers Care Display Trimmer Name Role Phone Lula Harvey MD Primary Care Prov ider Naeem, Jossie A Primary Care Provider Naeem, Jossie A Unavailable Encounter Details Date Type Department Care Team (Late st Contact Info) Description 07/19/2021 Procedure Pass [facility], [address] [place] [address] Social History Tobacco Use Types Packs/Day Years [...] documented as of this encounter Care Teams Display Trimmer Relationship Specialty Start Date End Date Lula Harvey MD [email or web address] PCP - General Family Medicine 10/16/17 01/31/22 Jossie Hartley MD [address] [place] [id number] PCP - General Internal Medicine 02/01/22 Jossie Hartley MD [address] [place] [id number] Insurance Assigned Provider 05/19/22 03/23/23 documented as of this encounter Additional Source Comments The information contained in this document represents components of the legal health record. It is not the complete legal health record.[facility]
--- OUTSIDE RECORDS SUMMARY | 2025-03-04 08:38 | XMS_ITS | Clinical Summary ---
Author Organization [facility] Address [address] [place] [id number] Phone Care Team Providers Care Delivery Clerk Name Role Phone Jossie Kwan MD Primary Care Provider [phone] Allergies Active Allergy Reactions Criticality Noted Date Comments Erythromycin 09/16/2017 Fluticasone Dizziness,Nausea and /or Vomiting 06/17/2024 Gluten Protein 02/01/2022 Celiac disease Ibuprofen 02/01/2022 Stomach ulcer Montelukast 07/02/2023 Naproxen 02/01/2022 Stomach ulcer Penicillins Anaphylaxis High 09/16/2017 [place] Anaphylaxis High 02/01/2022 Cetirizine 07/02/2023 Pt states she cannot tolerate med well. Medications aspirin 81 mg chewable tablet Active acetaminophen (TYLENOL) 325 mg tablet Take 650 mg by mouth every 6 (six) hours as needed for mild pain or 1-3 (on a general 0-10 scale). Active leucovorin (WELLCOVORIN) 5 mg tablet 10 mg every 7 days. Active predniSONE (DELTASONE) 10 MG tablet daily. Active omeprazole (PRILOSEC) 20 MG capsule Take 20 mg by mouth daily. Active calcium carb/vit D3/minerals (CALCIUM-VITAMIN D ORAL) Take by mouth daily. Active midodrine (PROAMATINE) 2.5 MG tablet Take 2.5 mg by mouth 3 (three) times a day. Active albuterol 90 mcg/actuation inhaler Inhale 2 puffs into the lungs 4 (four) times a day. 6.7 g 6 023 Active Additional Information Patient not taking.Reported on 06/17/2024 BD TUBERCULIN SYRINGE 1 mL 27 x 1/2 Syrg 023 Active syringe with needle 1 mL 27 x 1/2 SyrgIndications:B12 deficiency 1 each by Miscellaneous route as needed. 25 each 6 024 Active RASUVO, PF, 25 mg/0.5 mL subcutaneous auto-injector Inject 25 mg under the skin every 7 days. 024 Active ENBREL SURECLICK 50 mg/mL (1 mL) PnIj Inject under the skin once a week. 025 Active cyanocobalamin (VITAMIN B-12) 1,000 mcg/mL injectionIndications:B1 2 deficiency Inject 1 mL (1,000 mcg total) into the muscle every 2 (two) months. 1 mL 11 025 Active atorvastatin (LIPITOR) 20 MG tabletIndications:Pure hypercholesterolemia TAKE ONE TABLET BY MOUTH ONCE DAILY 90 tablet 3 025 Active levothyroxine (SYNTHROID, LEVOTHROID) 88 MCG tabletIndications:Acqui red hypothyroidism TAKE ONE TABLET BY MOUTH ONCE DAILY 90 tablet 3 025 Active Active Problems Problem Noted Date Diagnosed Date Osteopenia of multiple sites 08/10/2024 Acquired hypothyroidism 08/10/2024 B12 deficiency 08/10/2024 Neuroma of foot 01/28/2024 Snoring 09/20/2022 Other insomnia 09/20/2022 Rheumatoid arthritis involvi ng multiple sites with positive rheumatoid factor 09/08/2021 Overview (09/08/2021): 56 yo female with history of non traumatic right wrist pain since 04/2021 MRI consistent with inflammatory arthritis and positive RF consistent with seropositive RA Will need DMARD therapy We discussed and reviewed the risk and benefits of Methotrexate (MTX) . The potential side effects/adverse reactions of MTX include but are not limited to rash, GI distress, teratogenicity, immunosuppression/infections, hepatotoxicity, pulmonary toxicity, and bone marrow toxicity. The patient knows to report any signs of infection. The patient knows to take the medication only once weekly, to avoid alcoholic beverages, and to have routine blood testing for liver, bone marrow toxicity and renal function. needs to be avoided on this medication and pt understands the need to use control; if is desired, the medication needs to be stopped at least 3 months prior to conception. We discussed that the full effect of methotrexate may not be appreciated until the patient has been on the medication at a full dose for about 3-4 months. The patient expressed understanding and was agreeable to starting the medication. - Start MTX 10mg po 1st week, increase to 12.5 mg po 2nd week and 15 mg po weekly 3rd week to be continued - Start folic acid 1mg po daily- - Labs now including: CBC, CMP, ESR, CRP, Hepatitis serologies, - Will obtain a baseline CXR - Repeat monitoring labs every 6 weeks on MTX - Follow-up in 1 month Assessment & Plan (09/08/2021 6:39 AM EDT): 56 yo female with history of non traumatic right wrist pain since 04/2021 MRI consistent with inflammatory arthritis and positive RF consistent with seropositive RA Will need DMARD therapy We discussed and reviewed the risk and benefits of Methotrexate (MTX) . The potential side effects/adverse reactions of MTX include but are not limited to rash, GI distress, teratogenicity, immunosuppression/infections, hepatotoxicity, pulmonary toxicity, and bone marrow toxicity. The patient knows to report any signs of infection. The patient knows to take the medication only once weekly, to avoid alcoholic beverages, and to have routine blood testing for liver, bone marrow toxicity and renal function. needs to be avoided on this medication and pt understands the need to use control; if is desired, the medication needs to be stopped at least 3 months prior to conception. We discussed that the full effect of methotrexate may not be appreciated until the patient has been on the medication at a full dose for about 3-4 months. The patient expressed understanding and was agreeable to starting the medication. - Start MTX 10mg po 1st week, increase to 12.5 mg po 2nd week and 15 mg po weekly 3rd week to be continued - Start folic acid 1mg po daily- - Labs now including: CBC, CMP, ESR, CRP, Hepatitis serologies, - Will obtain a baseline CXR - Repeat monitoring labs every 6 weeks on MTX - Follow-up in 1 month Encounters Date Type Department Care Team Description 02/13/2025 8:28 AM EDT - 02/13/2025 11:59 PM EDT Hospital Encounter [facility] [address] [place] [address] Karson Beck MD Discharge Disposition: Home or Self Care 02/13/2025 Transcribe Orders [facility] [address] [place] [address] Karson Beck MD Encounter for long-term (current) use of medications (Primary Dx); Rheumatoid arthritis, involving unspecified site, unspecified whether rheumatoid factor present 01/11/2025 Orders Only [facility] [address] [place] [address] Karson Beck MD Encounter for long-term (current) use of medications (Primary Dx) from Last 3 Months Immunizations Immunization Administration Dates Next Due COVID-19 (Pre-03/04) Pfizer Vaccine, mRNA, PF 02/16/2021 [id number] FORMULATION 06/09/2009 Influenza High-Dose Trivalen t Preservative Free IM 02/28/2018 Influenza Quadrivalent Prese rvative Free IM 04/24/2023,04/14/2020,03/03/2019,02/18,02/16/2016 Influenza, Unspecified Formulation 04/03/2013,,01/24/2010 Novel [id number], Injectable 06/09/2009 Pneumococcal conjugate PCV13 12/08/2014 Pneumococcal polysaccharide PPSV23 07/02/2023, Pneumococcal, Unspecified Formulation 03/29/2011 Td (adult),2 Lf Tetanus Toxo id, PF, Adsorbed 12/01/2020 Tdap 01/24/2010,01/24/2010 Family History Medical History Relation Comments Coronary artery disease Father Hyperlipidemia Mother Endometriosis Sister Polycystic ovary syndrome Sister Relation Status Comments Father Mother Alive Sister Alive Social History Tobacco Use Types Packs/Day Years Used Date Smoking Tobacco: Former Cigarettes 1 7 1 5 - 1991 Smokeless Tobacco: Never Tobacco Cessation:Counseling Given: Not Answered Alcohol Use Standard Drinks/Week Comments No 0 [...] high school, GED, job training, learning the [place] language, technical skills, or developing parenting skills)? [...] as food, clothing, or medical care? No 08/10/2024 In the past 12 months have y ou been in a relationship with a person who hurts, threatens, or tries to control you? No 08/10/2024 Are you denied basic needs s uch as food, clothing, or medical care? No 08/10/2024 In the past 12 months have y ou been in a relationship with a person who hurts, threatens, or tries to control you? No 08/10/2024 Comments No Sex and Gender Information Value Date Recorded Sex Assigned at Female 01/23/2023 4:04 PM EDT Legal Sex Female 7:23 PM EST Gender Identity Female 01/23/2023 4:04 PM EDT Sexual Orientation Choose not to disclose 2023 7:10 AM EST Last Filed Vital Signs Vital Sign Reading Time Taken Comments Blood Pressure 105/61 06/22/2024 10:48 AM EST Pulse 80 06/22/2024 10:48 AM EST Temperature 36.4 C (97.6 F) 06/22/2024 10:35 AM EST Respiratory Rate 18 06/22/2024 10:48 AM EST Oxygen Saturation 99% 06/22/2024 10:48 AM EST Inhaled Oxygen Concentration - - Weight 68 kg (150 lb) 06/17/2024 1:57 PM EST Height 160 cm (5' 3 ) 06/17/2024 1:57 PM EST Body Mass Index 26.57 06/17/2024 1:57 PM EST Plan of Treatment Health Maintenance Due Date Last Done Comments ZOSTER VACCINES (1 of 2) 09/03/1986 COLOGUARD 09/03/2012 FIT TEST 09/03/2012 FOBT 09/03/2012 SIGMOIDOSCOPY 09/03/2012 VIRTUAL COLONOSCOPY 09/03/2012 RSV VACCINE (1 - Risk 50-74 years 1-dose series) 09/03/2017 MAMMOGRAM 07/06/2024 07/06/2022, 06/14, 02/05/2019, Additional history exists INFLUENZA VACCINE (#1) 2024 , 04/24/2023, 04/14/2020, Additional history exists COVID-19 VACCINE (2024- season) 2025 10/20/2023, 04/24/2023, 02/16/2021, Additional history exists HIV ONE-TIME SCREENING (18-65 YEARS) 07/02/2025 Postponed from 09/03/1985 (Patient Declines / Guardian Declines) TSH LEVEL 07/04/2025 07/04/2024, 03/0 11/2023, 03/19/2023, Additional history exists DEPRESSION SCREENING 08/10/2025 08/10/2024 SCREENING FOR DIABETES 05/02/2027 05/02/2024 PAP SMEAR 05/25/2027 05/25/2022 PNEUMOCOCCAL VACCINES (50+ years) (4 of 4 - PCV20 or PCV21) 07/02/2028 07/02/2023, 12/08/2014, 03/29/2011 LIPID PANEL 11/07/2028 11/08/2023, 03/19/2023 Adult Td,Tdap Booster 12/01/2030 12/01/2020 , 01/24/2010, 01/24/2010 COLONOSCOPY 06/22/2034 06/22/2024, 06/15/2019 COLORECTAL CANCER SCREENING 06/22/2034 HEPATITIS C SCREENING Completed 09/15/2021 SMOKING STATUS SCREENING (Once After 26 Yrs) Completed 06/22/2024 HEPATITIS A VACCINES Aged Out No long er eligible based on patient's age to complete this topic HIB VACCINES Aged Out No longer eligi ble based on patient's age to complete this topic MENINGOCOCCAL VACCINES (ACWY) Aged Out No longer eligible based on patient's age to complete this topic MENINGOCOCCAL VACCINES (B) Aged Out N o longer eligible based on patient's age to complete this topic Medical Devices Implanted Type Area Tin Pourer Device Identifier Shelf Expiration Date Model / Serial / Lot Clip Hemostasis Resolution 360 Lf Nonsterile 2.8mm Channel 360deg 235cm Bx/20ea - [id number] Implanted:Qty: 1 on 06/15/2019 by Odilon Fox MD at [facility] [employer] [id number] / / Procedures Procedure Name Priority Date/Time Associated Diagnosis Comments ASPARTATE AMINOTRANSFERASE (AST) Routine 02/13/2025 8:59 AM EDT Encounter for long-term (current) use of medications Rheumatoid arthritis, involving unspecified site, unspecified whether rheumatoid factor present ALANINE AMINOTRANSFERASE (ALT) Routine 02/13/2025 8:59 AM EDT Encounter for long-term (current) use of medications Rheumatoid arthritis, involving unspecified site, unspecified whether rheumatoid factor present MISCELLANEOUS LAB TEST Routine 8:59 AM EDT Encounter for long-term (current) use of medications Rheumatoid arthritis, involving unspecified site, unspecified whether rheumatoid factor present CREATININE/EGFR Routine 02/13/2025 8:59 AM EDT Encounter for long-term (current) use of medications Rheumatoid arthritis, involving unspecified site, unspecified whether rheumatoid factor present C-REACTIVE PROTEIN Routine 02/13/2025 8: 59 AM EDT Encounter for long-term (current) use of medications Rheumatoid arthritis, involving unspecified site, unspecified whether rheumatoid factor present SEDIMENTATION RATE (ESR) Routine 02/13/2025 8:59 AM EDT Encounter for long-term (current) use of medications Rheumatoid arthritis, involving unspecified site, unspecified whether rheumatoid factor present CBC AND DIFFERENTIAL Routine 02/13/2025 8:59 AM EDT Encounter for long-term (current) use of medications Rheumatoid arthritis, involving unspecified site, unspecified whether rheumatoid factor present TSH Routine 07/04/2024 9:27 AM EST Acquired hypothyroidism ENDOSCOPY, COLON 06/22/2024 10:0 2 AM EST LIPID PANEL Routine 11/08/2023 7:24 AM EDT Rheumatoid arthritis, involving unspecified site, unspecified whether rheumatoid factor present Encounter for long-term (current) use of other medications BI MAMMOGRAM SCREENING WITH TOMOSYNTHESIS WITH CAD (BILATERAL) Routine 07/06/2022 9:44 AM EST Screening mammogram for breast cancer PAP TEST Routine 05/25/2022 12:00 AM EST HEPATITIS C ANTIBODY, QUALITATIVE Routine 09/15/2021 9:04 AM EDT Rheumatoid arthritis involving multiple sites with positive rheumatoid factor Need for hepatitis C screening test from Last 3 Months or Most Recently Relevant to Health Maintenance Results * Creatinine/eGFR (02/13/2025 8:59 AM EDT) CREATININE 0.70 0.5 - 1.5 mg/dL [facility] EGFR 101 >59 mL/min/1.7 3m2 [facility] Comment:Estimated glomerular filtration rate calculated using the CKD-EPI refit equation. Blood 02/13/2025 8:59 AM EDT 02/13/2025 9:05 AM EDT us Karson Beck MD LAB BLOOD ORDERABLES Shelly l Result Performing Organization Address City/[facility]/ZIP Co de Phone Number [address] [address] * Miscellaneous lab test (02/13/2025 8:59 AM EDT) TESTS REQUESTED MANUAL DIFF FOR CBC [facility] SPECIMEN/TUBE TYPE LAV [facility] REQUEST RECEIVED Request received. A separate order for the requested test will be generated by the laboratory. [facility] Blood 02/13/2025 8:59 AM EDT 02/13/2025 9:05 AM EDT us Karson Beck MD LAB BLOOD ORDERABLES Shelly l Result Performing Organization Address [facility] Co de Phone Number [address] [address] * Sedimentation rate (ESR) (02/13/2025 8:59 AM EDT) ESR 6 0 - 30 mm/h [facility] Blood 02/13/2025 8:59 AM EDT 02/13/2025 9:05 AM EDT us Karson Beck MD LAB BLOOD ORDERABLES Shelly l Result Performing Organization Address City/[facility]/ZIP Co de Phone Number [address] [address] * (ABNORMAL) CBC and differential (02/13/2025 8:59 AM EDT) WBC 5.94 4.00 - 11.00 K/uL [facility] RBC 3.81(L) 4.00 - 5.20 M/uL [facility] HGB 12.7 12.0 - 16.0 g/dL [facility] HCT 38.9 36.0 - 46.0 % [facility] PLT 224 150 - 450 K/uL [facility] MCV 102.1(H) 80.0 - 100.0 fL [facility] MCH 33.3(H) 27.0 - 31.0 pg [facility] MCHC 32.6 32.0 - 36.0 g/dL [facility] RDW 12.7 11.5 - 14.5 % [facility] MPV 11.8 8.4 - 12.0 fL [facility] NRBC 0.00 0.00 /100 WBCs [facility] ABSOLUTE NRBC 0.00 0.00 K/uL [facility] DIFF METHOD Auto [facility] NEUTS 55.0 43.0 - 75.0 % [facility] Comment:Corrected on 02/13 A T 1122: previously reported as 52.0 LYMPHS 30.0 18.2 - 47.4 % [facility] Comment:Corrected on 02/13 A T 1122: previously reported as 32.3 MONOS 11.0 4.00 - 11.00 % [facility] Comment:Corrected on 02/13 A T 1122: previously reported as 10.3 EOS 4.0 0.0 - 8.0 % [facility] Comment:Corrected on 02/13 A T 1122: previously reported as 4.5 Granulocytes, immature (%) 0.7 0.0 - 0.9 % [facility] ABSOLUTE NEUTS 3.27 1.80 - 7.70 K/uL [facility] Comment:Corrected on 02/13 A T 1122: previously reported as 3.09 ABSOLUTE LYMPHS 1.78 1.00 - 3.10 K/uL [facility] Comment:Corrected on 02/13 A T 1122: previously reported as 1.92 ABSOLUTE MONOS 0.65 0.20 - 0.80 K/uL [facility] Comment:Corrected on 02/13 A T 1122: previously reported as 0.61 ABSOLUTE EOS 0.24 0.00 - 0.80 K/uL [facility] Comment:Corrected on 02/13 A T 1122: previously reported as 0.27 Granulocytes, immature 0.04 0.00 - 0.09 K/uL [facility] Blood 02/13/2025 8:59 AM EDT 02/13/2025 9:05 AM EDT us Karson Beck MD LAB BLOOD ORDERABLES Edit ed Result - Final Performing Organization Address City/[facility]/ZIP Co de Phone Number [address] [address] * C-Reactive Protein (02/13/2025 8:59 AM EDT) C REACTIVE PROTEIN <3.0 0.0 - 4.0 mg/L [facility] Blood 02/13/2025 8:59 AM EDT 02/13/2025 9:05 AM EDT us Karson Beck MD LAB BLOOD ORDERABLES Shelly l Result Performing Organization Address [facility]/ZIP Co de Phone Number [address] [address] * Alanine aminotransferase (ALT) (02/13/2025 8:59 AM EDT) ALT 25 0 - 40 U/L [facility] Blood 02/13/2025 8:59 AM EDT 02/13/2025 9:05 AM EDT us Karson Beck MD LAB BLOOD ORDERABLES Shelly l Result Performing Organization Address [facility]/ZIP Co de Phone Number [address] [address] * Aspartate aminotransferase (AST) (02/13/2025 8:59 AM EDT) AST 25 0 - 37 U/L [facility] Blood 02/13/2025 8:59 AM EDT 02/13/2025 9:05 AM EDT us Karson Beck MD LAB BLOOD ORDERABLES Shelly l Result [address] [address] * TSH (07/04/2024 9:27 AM EST) TSH 1.90 0.27 - 4.20 uIU/mL [facility] Blood 07/04/2024 9:27 AM EST 07/04/2024 9:33 AM EST us Jossie Kwan MD LAB BLOOD ORDERABLES Final Re sult Performing Organization Address [facility] Co de Phone Number [address] [address] * ENDOSCOPY, COLON (06/22/2024 10:02 AM EST) Narrative Transcriptions Odilon Fox MD - 06/22/2024 10:02 AM EST [facility] Patient Name: Cat Saige Attending MD:: ODILON FOX MD, , Procedure Date: 06/22/2024 10:02 AM Date of : 1965 Age: 58 Admit Type: Outpatient Gender: Female Room: [place] [address] Referring MD: JOSSIE KWAN MD Exam Type: Colonoscopy Indications: High risk colon cancer surveillance: Personalhistory of colonic polyps, Change in bowel habits Medications: Monitored Anesthesia Care Procedure: Informed consent was obtained from the patientafter discussion of the indications, limitations, alternatives, benefits, and risks of the procedure. Risks specifically discussed include but are not limited to medication reactions, missed lesions, bleeding, perforation, or the need for emergent surgery. Throughout the procedure, the patient's blood pressure, pulse, end-tidal CO2, and oxygensaturations were monitored continuously. The Olympus adult variable colonoscope [id number] #5 was introduced through the anus and advanced to the cecum, identified by appendiceal orifice andileocecal valve. The colonoscopy was performed without difficulty. The patient tolerated the procedurewell. The quality of the bowel preparation was excellent. The quality of the bowel preparation was evaluated using the BBPS ([place] Bowel Preparation Scale)with scores of: Right Colon = 3, Transverse Colon = 3and Left Colon = 3 (entire mucosa seen well with no residual staining, small fragments of stool oropaque liquid). The total BBPS score equals 9. Anatomical landmarks were photographed. Complications: No immediate complications. Estimated blood loss: Minimal. Findings: The perianal and digital rectal examinations were normal. Internal hemorrhoids were found duringretroflexion. The hemorrhoids were mild. The exam was otherwise normal throughout theexamined colon. Biopsies for histology were taken with a coldforceps from the right colon and left colon for evaluationof microscopic colitis. Impression: - Internal hemorrhoids. - Biopsies were taken with a cold forceps from the right colon and left colon for evaluation of microscopic colitis. Recommendation: - Discharge patient to home. - Await pathology results. - Repeat colonoscopy in 5 years for surveillance. ODILON FOX MD, 06/22/2024 10:33:48 AM This report has been signed electronically. Number of Addenda: 0 Note Initiated On: 06/22/2024 10:02 AM Procedure Code(s): --- Professional --- 50096, Colonoscopy, flexible; with biopsy, single or multiple --- Technical --- 54098, Colonoscopy, flexible; with biopsy, single or multiple Diagnosis Code(s): --- Professional --- Z86.010, Personal history of colonic polyps K64.8, Other hemorrhoids R19.4, Change in bowel habit --- Technical --- Z86.010, Personal history of colonic polyps K64.8, Other hemorrhoids R19.4, Change in bowel habit CPT copyright 2021 [employer]. All rights reserved. The codes documented in this report are preliminary and upon lubrication technician reviewmay be revised to meet current compliance requirements. Procedure Date: 06/22/2024 10:02:[address] [place] [id number] us Jossie Kwan MD GI PROCEDURE ORDERABLES Final Result * (ABNORMAL) Lipid panel (11/08/2023 7:24 AM EDT) HDL 89 mg/dL [facility] Comment: Interpretation <40 mg/dL: Low HDL cholesterol (major risk factor for CHD) Greater than or equal to 60 mg/dL: High HDL cholesterol ( negative risk factor for CHD) HDL - cholesterol is affected by a number of factors, e.g. smoking, excerise, hormones, sex and age. CHOLESTEROL 238 0 - 240 mg/dL [facility] TRIGLYCERIDES 74 30 - 160 mg/dL [facility] LDL 134(H) 50 - 129 mg/dL [facility] Comment: LDL levels in terms of risk for coronary heart disease: <100 mg/dL: Optimal 100-129 mg/dL: Near or above optimal 130-159 mg/dL: Borderline high 160-189 mg/dL: High >190 mg/dL: Very High CARDIAC RISK RATIO 2.7(L) 3.3 - 4.4 C [facility] Blood 11/08/2023 7:24 AM EDT 11/08/2023 7:26 AM EDT us Karson Beck MD LAB BLOOD ORDERABLES Shelly l Result [facility] [address] [place] [address] * BI MAMMOGRAM SCREENING WITH TOMOSYNTHESIS WITH CAD (BILATERAL) (07/06/2022 9:44 AM EST) Anatomical Region Laterality Modality Breast Left, Breast Right, Breast Bilateral Bila teral Mammography 07/06/2022 3:19 PM EST Impressions 07/06/2022 3:25 PM EST BILATERAL BREASTS: Benign, no evidence of malignancy. Recommend bilateral annual screening mammography in 12 months. Bi-RADS: BI-RADS CATEGORY: 2 - Benign finding. DENSITY: There are scattered fibroglandular densities. RIGHT RECOMMENDATION DUE DATE: 12 Months Recommendation: Right Mammography Screening LEFT RECOMMENDATION DUE DATE: 12 Months Recommendation: Left Mammography Screening Narrative 07/06/2022 3:25 PM EST STUDY: Bilateral screening mammography with tomosynthesis and CAD TECHNIQUE: Bilateral full-field digital screening mammography is obtained and read in conjunction with computer-aided detection. Tomosynthesis as well as 2-D C view imaging were obtained. COMPARISON: Comparison made to multiple prior studies dating back to February 2010. BILATERAL BREASTS: No new masses, suspicious calcifications or other abnormalities are seen. Stable left breast excisional biopsy changes are again noted. No significant interval change. Procedure Note Buzz Eller MD - 07/06/2022 STUDY: Bilateral screening mammography with tomosynthesis and CAD TECHNIQUE: Bilateral full-field digital screening mammography is obtainedand read in conjunction with computer-aided detection. Tomosynthesis aswell as 2-D C view imaging were obtained. COMPARISON: Comparison made to multiple prior studies dating back toO2009. BILATERAL BREASTS: No new masses, suspicious calcifications or otherabnormalities are seen. Stable left breast excisional biopsy changes areagain noted. No significant interval change. IMPRESSION: BILATERAL BREASTS: Benign, no evidence of malignancy. Recommend bilateralannual screening mammography in 12 months. Bi-RADS: BI-RADS CATEGORY: 2 - Benign finding. DENSITY: There are scattered fibroglandular densities. RIGHT RECOMMENDATION DUE DATE: 12 Months Recommendation: Right Mammography Screening LEFT RECOMMENDATION DUE DATE: 12 Months Recommendation: Left Mammography Screening us Jossie A Kwan MD IMG MG EXAMS Final Result * Pap Test (05/25/2022 12:00 AM EST) 05/25/2022 05/28/2022 10: 06 AM EST Narrative SEE NARRATIVE - 05/31/2022 3:24 [place] [address] Virtual Office Assistant: Vita Manzo MD [employer] Cytology Report FINAL DIAGNOSIS A. PAP SMEAR (SUREPATH) CE: SPECIMEN ADEQUACY: Satisfactory for evaluation; transformation zone present. INTERPRETATION: NEGATIVE FOR INTRAEPITHELIAL LESION OR MALIGNANCY. Electronically Signed Out By: ESDRAS Anderson(ASCP) The Pap test is a screening test primarily for squamous cancers and precursors and has associated false-negative and false-positive results. New technologies such as liquid-based preparations may decrease but will not eliminate all false-negative results. Regular sampling and follow-up of unexplained clinical signs and symptoms are recommended to minimize false negative results. PROCEDURES/ADDENDA HPV Testing (Requested) Ordered Date: 05/28/2022 A. PAP SMEAR (SUREPATH) CE: Human Papilloma Virus Test NEGATIVE for high-risk Human Papilloma Virus types 16, 18, 45 and the Other high risk probe set (Includes 31, 33, 35, 39, 51, 52, 56, 58, 59, 66, 68) Note: Testing performed by Stipple Onclarity HR-HPV analysis. Clinical correlation is advised. This HPV test was performed at [facility], [address] [place] [address]. This test has been FDA approved for SurePath cervical cytology specimens. The accuracy and precision of this test for all other specimen sources has been verified in the Cytopathology Laboratory of the [facility] and has not been cleared or approved by the U.S. Food and Drug Administration. Clinical correlation is advised. CLINICAL HISTORY Date of Last Menstrual Period: Not Provided Menstrual History: Post Menopausal Other Clinical Conditions: Screening Pap SPECIMEN SOURCE A: PAP SMEAR (SUREPATH) CE Patient Name: KIRA MOULTON : 1965 (Age: 56) Sex: F Institution: [facility] Location: [facility] Date of Collection: 05/25/2022 Date of Reported: 05/31/2022 15:24 Results to: Jossie Kwan MD, [facility], B us Jossie Kwan MD CYTOLOGY ORDERABLES Final Res ult SEE NARRATIVE * Hepatitis C antibody, qualitative (09/15/2021 9:04 AM EDT) HCV NON-REACTIV E NON-REACTI VE [facility] Blood 09/15/2021 9:04 AM EDT 09/15/2021 9:10 AM EDT us Scarlet MONTANO LAB BLOOD ORDERABLES Fin al Result Performing Organization Address City/[facility]/ZIP Co de Phone Number [facility] [address] [place] [address] from Last 3 Months or Most Recently Relevant to Health Maintenance Insurance [employer] PPO [employer] PLUS PPO [employer] PLUS PPO Act-[employer] Software PLUS PPO Act-[employer] PLUS PPO PLUS PPO Care Teams Delivery Clerk Relationship Specialty Start Date End Date Jossie Kwan MD [address] [place] [address], [address] [place] [address] [email or web address] PCP - General Internal Medicine 02/01/22 Additional Source Comments The information contained in this document represents components of the legal health record. It is not the complete legal health record.[facility]
--- OUTSIDE RECORDS SUMMARY | 2025-03-04 08:38 | XMS_ITS | Clinical Summary ---
Author Organization [facility] Address [address] [place] [phone] Phone Care Team Providers Care Environmental Compliance Engineer Name Role Phone Jossie Hartley MD Primary Care Provider [phone] Allergies Active Allergy Reactions Criticality Noted Date [...] Safety Answer Date Record ed Physical Abuse Unrecognized value 08/12/2024 Verbal Abuse Unrecognized value 08/12/2024 Comments Unknown Sex and Gender Information [...] Last Done Comments Breast Cancer Screening 1965 Colorectal Cancer Screening: Colonoscopy 1965 COVID-19 Vaccine (#1) 09/03/1972 DTaP,Tdap,and Td Vaccines (1 - Tdap) 09/03/1986 Hepatitis B Vaccines (1 of 3 - 19+ 3-dose series) 09/03/1986 Cervical Cancer Screening: P ap Smear 09/03/1988 Pneumococcal Vaccine: 50+ Ye ars (1 of 1 - PCV) 09/03/2017 RSV Immunization Adult Patie nts (1 - Risk 50-74 years 1-dose series) 09/03/2017 Zoster Vaccines (1 of 2) 09/03/2017 Depression Screening 05/13/2024 HIV Screening 07/27/2024 Hepatitis C Screening 07/27/2024 [...] patient's age to complete this topic Insurance [employer] [id number] Care Teams Environmental Compliance Engineer Relationship Specialty Start Date End Date Jossie Hartley MD [address] [place] [address], [address] [place] [address] PCP - General Internal Medicine 08/12/24
--- OUTSIDE RECORDS SUMMARY | 2025-03-04 08:39 | XMS_ITS | Encounter Summary ---
Author Organization [facility] Address [address] [place] [address] Phone Care Team Providers Care Cleaning Handyman Name Role Phone Lula Harvey MD Primary Care Prov ider Hartley, Jossie A MD Primary Care Provider [phone] Hartley, Jossie A MD Unavailable [phone] Encounter Details Date Type Department Care Team (Latest Contact Info) Description 08/03/2021 Transcribe Orders Virtual Department [address] [place] [address] Danuta Hutson PA-C [address] [place] [address] Orthopedics & Sports Medicine, [place] [address] [email or web address] Metal foreign body in abdomen (Primary Dx) Social History Tobacco Use Types [...] as of this encounter Results * XR ABDOMEN 1 VIEW (08/03/2021 11:56 AM EDT) Anatomical Region Laterality Modality Abdomen Computed Radiogr aphy 08/03/2021 12:1 2 PM EDT Impressions 08/03/2021 12:14 PM EDT No radiopaque foreign bodies. Narrative 08/03/2021 12:14 PM EDT COMPARISON: None. ABDOMEN RADIOGRAPH FINDINGS: 2 supine images obtained. Heart/lungs: Unremarkable. Bones: Moderate left L5-S1 facet arthropathy. Mild bilateral SI joint arthritis. Soft tissues: No radiopaque foreign bodies. Umbilical and right nipple piercings. Bowel: Unremarkable. Procedure Note Messi Laguna MD - 08/03/2021 COMPARISON: None. ABDOMEN RADIOGRAPH FINDINGS: 2 supine images obtained. Heart/lungs: Unremarkable. Bones: Moderate left L5-S1 facet arthropathy. Mild bilateral SI jointarthritis. Soft tissues: No radiopaque foreign bodies. Umbilical and right nipplepiercings. Bowel: Unremarkable. IMPRESSION: No radiopaque foreign bodies. Danuta Hutson PA-C IMG XR ABDOMEN Shelly l Result documented in this encounter Visit Diagnoses Diagnosis Metal foreign body in abdomen- Primary Metal foreign body in abdomen documented in this encounter Additional Health Concerns Infection Onset Date Last Indicated Resolved Time CoV-Presumed 04/22/2022 04/22/2022 05/13/2022 1:21 AM EST COVID-19 10/29/2022 10/29/2022 11/19/2022 1:21 AM EDT COVID-19 01/04/2024 01/04/2024 01/25/2024 1:22 AM EDT CoV-Risk 06/03/2024 06/03/2024 06/14/2024 2:34 AM EST Influenza A 06/03/2024 06/03/2024 06/10/2024 1:22 AM EST documented as of this encounter Care Teams Cleaning Handyman Relationship Specialty Start Date End Date Lula Harvey MD [email or web address] PCP - General Family Medicine 10/16/17 01/31/22 Jossie Hartley MD [address] [place] [address] PCP - General Internal Medicine 02/01/22 Jossie Hartley MD [address] [place] [address] [email or web address] Insurance Assigned Provider 05/19/22 03/23/23 documented as of this encounter Additional Source Comments The information contained in this document represents components of the legal health record. It is not the complete legal health record.[facility]
--- OUTSIDE RECORDS SUMMARY | 2025-03-04 08:39 | XMS_ITS | Encounter Summary ---
Author Organization [facility] Address [address] [place] [address] Phone Care Team Providers Care Wildlife Enforcement Major Name Role Phone Lula Harvey MD Primary Care Prov ider Hartley, Jossie A Primary Care Provider [phone] Hartley, Jossie A MD Unavailable [phone] Encounter Details Date Type Department Care Team (Late st Contact Info) Description 09/15/2021 Ancillary Orders [facility] Rheumatology [address] [place] [address] Scarlet Del Rosario PA [address] [place] [address] Rheumatoid arthritis involving multiple sites with positive rheumatoid factor Social History Tobacco Use Types Packs/Day Years [...] as of this encounter Results * XR FOOT 3 OR MORE VIEWS (LEFT) (09/15/2021 8:51 AM EDT) Anatomical Region Laterality Modality Foot Left Computed Radiogr aphy 09/15/2021 11:3 8 AM EDT Impressions 09/15/2021 11:39 AM EDT Minimal osteoarthritis in the first MTP. No signs of inflammatory arthritis. Minor Achilles enthesopathy. POS [id number] Narrative 09/15/2021 11:39 AM EDT 3 views Compare to outside films from [facility] 10/16/2017 and today's images of the other foot. Similar to the right foot, there is minor subchondral sclerosis and marginal spurring in the first MTP joint in a pattern typical of osteoarthritis. No erosions or other evidence of an inflammatory arthritis. No signs of trauma, tumor or infection. Small posterior calcaneal spur. Procedure Note Jim Kendrick MD - 09/15/2021 3 views Compare to outside films from [facility] 10/16/2017 and today'simages of the other foot. Similar to the right foot, there is minor subchondral sclerosis andmarginal spurring in the first MTP joint in a pattern typical ofosteoarthritis. No erosions or other evidence of an inflammatory arthritis. No signs of trauma, tumor or infection. Small posterior calcaneal spur. IMPRESSION: Minimal osteoarthritis in the first MTP. No signs of inflammatoryarthritis. Minor Achilles enthesopathy. POS [id number] Scarlet MONTANO IMG XR LOWER EXTREMITY F inal Result documented in this encounter Visit Diagnoses Diagnosis Rheumatoid arthritis involving multiple sites with positive rheumatoid factor Rheumatoid arthritis involving multiple sites with positive rheumatoid factor documented in this encounter Additional Health Concerns Infection Onset Date Last Indicated Resolved Time CoV-Presumed 04/22/2022 04/22/2022 05/13/2022 1:21 AM EST COVID-19 10/29/2022 10/29/2022 11/19/2022 1:21 AM EDT COVID-19 01/04/2024 01/04/2024 01/25/2024 1:22 AM EDT CoV-Risk 06/03/2024 06/03/2024 06/14/2024 2:34 AM EST Influenza A 06/03/2024 06/03/2024 06/10/2024 1:22 AM EST documented as of this encounter Care Teams Wildlife Enforcement Major Relationship Specialty Start Date End Date Lula Harvey MD [email or web address] PCP - General Family Medicine 10/16/17 01/31/22 Jossie Hartley MD [address] [place] [phone] PCP - General Internal Medicine 02/01/22 Jossie Hartley MD [address] [place] [phone] Insurance Assigned Provider 05/19/22 03/23/23 documented as of this encounter Additional Source Comments The information contained in this document represents components of the legal health record. It is not the complete legal health record.[facility]
== END 2025-03-04 09:18 | disposition home or self-care (01) ==
LOC: HO.RHES 08:18
PROVIDERS: PCP Internal Medicine; Visit Provider Internal Medicine Rheumatology
DX: M06.9 Rheumatoid arthritis, unspecified (principal)

== ENCOUNTER → 2025-03-04 08:17 | Outpatient (BNVA) | payer OTHER, SELFPAY | PROVIDERS: PCP Internal Medicine; Visit Provider Internal Medicine Rheumatology | DX: M05.79 Rheumatoid arthritis with rheumatoid factor of multiple sites without organ or systems involvement (principal); Z79.899 Other long term (current) drug therapy | CPT/HCPCS: 96372; J1010 ==

== ENCOUNTER 2025-03-23 14:50 | Outpatient (AMB) | payer OTHER, SELFPAY ==
--- NOTE | 2025-03-23 15:08 | MHC.OFFVIS ---
Vital Signs 03/23/25 15:09 BP 126/80 Blood Pressure Location Rt brachial Position Sitting Pulse 66 Pulse Source Pulse Oximeter Pulse Oximetry (%) 100 Oxygen Delivery Method Room Air Intake Visit Reasons: wrist cortisone injection/ MD req Intake Note: Patient presents today for a cortisone inj.in right wrist. Accompanied by: Self / Same As Patient Allergies cetirizine (From Zyrtec) Allergy (Mild, Verified 03/23/25 15:08) Nausea fexofenadine (From Brittany) Allergy (Mild, Verified 03/23/25 15:08) Nausea fluticasone (From Flonase) Allergy (Verified 03/23/25 15:08) Unknown Penicillins Allergy (Verified 03/23/25 15:08) Unknown alaway drops Allergy (Mild, Uncoded 08/11/24 08:45) nausea,headache, dizziness Gluten Intolerance Allergy (Uncoded 05/27/24 08:25) Unknown Percocet Allergy (Uncoded 05/27/24 08:25) Unknown Singular Allergy (Uncoded 05/27/24 08:25) Unknown HPI HPI wrist cortisone injection/ MD req: Details: She did not have the response from Depo-Medrol as she did in the past. She continues to have joint pain in her hands that is worse than before. After last Rasuvo injection she failed reduced joint pain. She is having difficulty with driving now affecting the left wrists. She is unable to drive for prolonged periods of time due to unbearable pain in her wrists. She is requesting updated ADA letter and prescription for office furniture to be covered under [employer]: standing sit desk and walking pad. Physical Exam Vital Signs: Last Vital Signs Pulse 66 03/23/25 15:09 BP 126/80 03/23/25 15:09 Pulse Ox 100 03/23/25 15:09 Oxygen Delivery Method Room Air 03/23/25 15:09 Const Other: General: Comfortable Skin: No lesions seen MSK: Tender to palpate bilateral MCPs, PIPs and wrists. She has mild synovitis of right wrist. Office Procedures AMB Joint Injection/Aspiration Joint Injection/Aspiration Details: Right wrist Prep: site was prepped using aseptic technique Injected: 20 mg of, Kenalog, with 0.5 mL of and 1% plain lidocaine Procedure: Informed verbal consent was obtained. The patient tolerated the procedure well. Postprocedure protocol was discussed with patient. Coding 48948 - Medium joint Procedure code (CPT) selection complete Office Meds lidocaine (PF) 10 mg/mL (1 %) injection solution Performing Provider: Karson Beck MD Performing [place] [facility] Administered by: Danuta Ventura RN on 03/23/25 15:47 Dose Route Admin Location Dispensed Lot Number Expiration Date [facility] Commercial Accountant 0.5 mL Infiltration RIGHT WRIST 2 mL [id number] 10/10/26 91860-174-87 [facility] Total Dispensed Waste 2 mL 75 % Kenalog 40 mg/mL suspension for injection Performing Provider: Karson Beck MD Performing Location: [facility] Administered by: Danuta Ventura RN on 03/23/25 15:47 Dose Route Admin Location Dispensed Lot Number Expiration Date [facility] Commercial Accountant 20 mg [employer] Inj. RIGHT WRIST 1 mL [id number] 11/09/26 [address]-5 [employer] Total Dispensed Waste 1 mL 50 % Assessment & Plan Assessment & Plan (1) Rheumatoid arthritis: Comment: She relapsed when insurance denied Rasuvo and she was forced to switch to Otrexup. Depo-Medrol was not effective for treating her wrists pain. Right wrist pain is greater than left wrist pain. We discussed vagus nerve stimulation (VNS) for treatment of rheumatoid arthritis who have not responded to DMARD therapy last visit. 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 I recommend treating her wrists pain with cortisone injection. If she does not have benefit, I will reach out to [facility] rheumatology to enquire if the would consider Cat for the VNS. 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 Polyarthritis. Methotrexate started 09/29/2021 to present. Failed Humira 01/30/2022 to 05/01/2022, Inflectra 07/02/2022 to 07/31/2023, Actemra 08/31/2023 to 11/30/2023, Xeljanz 12/31/2023 to 05/2024, and Enbrel 05/2024-present. She had initial benefit on prednisone course but has had uncontrolled right wrist pain. MRI of right wrist results were reviewed, which revealed active inflammatory arthritis. We discussed risks involved with intra-articular cortisone injection including worsening hyperpigmentation of skin, which patient has had as side effect from a past cortisone injection. There is also risk of fat atrophy. Right wrist cortisone injection 05/2023 provided relief. Enbrel 05/2023-partial benefit. Rinvoq 09/2024-. Flare when Rasuvo changed to Otrexup due to insurance not covering Rasuvo 2024. Code(s): M06.9 - Rheumatoid arthritis, unspecified Category: Medical Qualifiers: Rheumatoid arthritis location: multiple sites Rheumatoid factor presence: with rheumatoid factor Qualified Code(s): M05.79 - Rheumatoid arthritis with rheumatoid factor of multiple sites without organ or systems involvement Plan: Labs for drug monitoring and high-risk medication UTD. She has lab requisition to do next set of labs for drug monitoring local to her home Patient received right wrist cortisone injection this visit Continue Rinvoq 15 mg daily Continue Rasuvo 25 mg once weekly SC Continue leucovorin 10 mg once weekly She will use nabumetone 500 mg b.i.d. PRN pain She has x-ray of right wrists scheduled for tomorrow to evaluate for alternative pathologist contributing wrist pain Prescription for standing sit desk and walking treadmill given to patient Letter for ADA accommodation written Return to clinic in 3 months (2) Osteopenia: Comment: With moderate fracture risk from bone density 2023 [facility] records. Code(s): M85.80 - Other specified disorders of bone density and structure, unspecified site Category: Medical Plan: I will check calcium and vitamin-D with next set of labs. Lab requisition printed for patient. Bone density due 2025 Start calcium citrate and vitamin-D supplement (3) Other mcfp (current) drug therapy: Code(s): Z79.899 - Other long term care administrator (current) drug therapy Category: Medical Plan: See above Orders: Orders Vitamin D 25-OH Total 2 Months M85.80 - Other specified disorders of bone density and structure, unspecified site Albumin Level Today M85.80 - Other specified disorders of bone density and structure, unspecified site, Z79.899 - Other mcfp (current) drug therapy Calcium Today M85.80 - Other specified disorders of bone density and structure, unspecified site, Z79.899 - Other mcfp (current) drug therapy AMB Joint Injection/Aspiration Today M25.531 - Pain in right wrist Medications: New [stand sit desk] As directed 1 ea 0RF rheumatoid arthritis [walking pad] As directed 1 ea 0RF rheumatoid arthritis calcium citrate-vitamin D3 315 mg-6.25 mcg (250 unit) 1 tab PO BID 180 tabs 4RF 90 days Refilled nabumetone Take with food 500 mg PO BID PRN 60 tabs 1RF joint pain Coding Level of Care Code Est Pt Level 4 (01548) Complex EM visit Add On G2211 Diagnoses Rheumatoid arthritis involving multiple sites with positive rheumatoid factor M05.79 Rheumatoid arthritis location: multiple sites Rheumatoid factor presence: with rheumatoid factor Osteopenia M85.80 Other mcfp (current) drug therapy Z79.899 CPT Codes Coding - 60068 Medium joint: 67972 - Medium joint ([id number])
[2025-03-23 15:09] VITALS: BP 126/80; PULSE 66; O2SAT 100
--- OUTSIDE RECORDS SUMMARY | 2025-03-23 16:36 | XMS_ITS | Encounter Summary ---
Author Organization [facility] Address [address] [place] [address] [place] [address] Phone Care Team Providers Care Government Affairs Director Name Role Phone Jossie Hartley MD Primary Care Provider [phone] Encounter Details Date Type Department Care Team (Late st Contact Info) Description 05/02/2024 Procedure Pass [facility], Ct Scan - [address] [address] Social History Tobacco Use Types Packs/Day Years [...] high school, GED, job training, learning the Chinese language, technical skills, or developing parenting skills)? [...] 05/02/2024 6:48 AM Darnell Lyons RN * [place] Suicide Severity Rating Scale (Screener/Recent Self-Report) Question Answer Date of Assessment Author 1. Wish to be (Past 1 Month) No 05/02/2024 6:48 AM Darnell Lyons RN 2. Non-Specific Active Suicidal Thoughts (Past 1 Month) No 05/02/2024 6:48 AM EST Darnell Winters RN 6. Suicidal Behavior (Lifetime) No 05/02/2024 6:48 AM EST Darnell Winters RN documented as of this encounter Plan of Treatment Upcoming Encounters Date Type Department Care Team (Late st Contact Info) Description 03/24/2025 4:00 PM EST Appointment [facility], X-Ray - [address] [address] Karson Beck MD [address] [place] [address] documented as of this encounter Visit Diagnoses Not on filedocumented in this encounter Additional Health Concerns Infection Onset Date Last Indicated Resolved Time CoV-Risk 06/03/2024 06/03/2024 06/14/2024 2:34 AM EST Influenza A 06/03/2024 06/03/2024 06/10/2024 1:22 AM EST Assessment Noted Time PHQ-2 Depression Total Score: 1 07/02/19 24 6:42 AM EST documented as of this encounter Care Teams Government Affairs Director Relationship Specialty Start Date End Date Jossie Hartley MD [address] [place] [address], [address] [place] [address] [email or web address] PCP - General Internal Medicine 02/01/22 documented as of this encounter Additional Source Comments The information contained in this document represents components of the legal health record. It is not the complete legal health record.[facility]
--- OUTSIDE RECORDS SUMMARY | 2025-03-23 16:36 | XMS_ITS | Encounter Summary ---
Author Organization [facility] Address [address] [place] [address] Phone Care Team Providers Care Office Mover Name Role Phone Lula Harvey MD Primary Care Prov ider Hartley, Jossie A Primary Care Provider Hartley, Jossie A MD Unavailable [phone] Encounter Details Date Type Department Care Team (Late Contact Info) Description 07/24/2019 Ancillary Orders Virtual Department [address] [place] [address] Jeanine Garcia PA [address] [place] [address] Dyspnea, unspecified type Social History Tobacco Use [...] Info) Description 03/24/2025 4:00 PM EST Appointment [facility], X-Ray - [address] [address] Karson Beck MD [address] [place] [address] documented as of this encounter Visit Diagnoses [...] documented as of this encounter Care Teams Office Mover Relationship Specialty Start Date End Date Lula Harvey MD [email or web address] PCP - General Family Medicine 10/16/17 01/31/22 Jossie Hartley MD [address] [place] [address] PCP - General Internal Medicine 02/01/22 Jossie Hartley MD [address] [place] [phone] Insurance Assigned Provider 05/19/22 03/23/23 documented as of this encounter Additional Source Comments The information contained in this document represents components of the legal health record. It is not the complete legal health record.[facility]
--- OUTSIDE RECORDS SUMMARY | 2025-03-23 16:36 | XMS_ITS | Encounter Summary ---
Author Organization [facility] Address [address] [place] [address] [place] [address] Phone Care Team Providers Care Oceanography Teacher Name Role Phone Jossie Hartley MD Primary Care Provider [phone] Encounter Details Date Type Department Care Team ([facility] st Contact Info) Description 06/22/2024 Procedure Pass [facility] Endoscopy Admitting Dept Virtual Department [address] [place] [address] Social History Tobacco Use Types Packs/Day Years [...] high school, GED, job training, learning the [place] language, technical skills, or developing parenting skills)? [...] Info) Description 03/24/2025 4:00 PM EST Appointment [facility], X-Ray - [facility] [address] [place] [address] Karson Beck MD [address] [place] [address] documented as of this encounter Visit Diagnoses Not on filedocumented in this encounter Additional Health Concerns Assessment Noted Time PHQ-2 Depression Total Score: 1 07/02/19 24 6:42 AM EST documented as of this encounter Care Teams Oceanography Teacher Relationship Specialty Start Date End Date Jossie Hartley MD [address] [place] [address], [address] [place] [address] [email or web address] PCP - General Internal Medicine 02/01/22 documented as of this encounter Additional Source Comments The information contained in this document represents components of the legal health record. It is not the complete legal health record.[facility]
--- OUTSIDE RECORDS SUMMARY | 2025-03-23 16:36 | XMS_ITS | Encounter Summary ---
Author Organization [facility] Address [address] [place] [address] Phone Care Team Providers Care Mems Integration Engineer Name Role Phone Naeem, Jossie A Primary Care Provider [phone] Lula Harvey MD Primary Care Prov ider Hartley, Jossie A Primary Care Provider [phone] Hartley, Jossie A MD Unavailable [phone] Encounter Details Date Type Department Care Team (Late st Contact Info) Description 05/21/2017 Ancillary Orders Virtual Department [address] [place] [address] Lula Harvey MD [address] [place] [address] [email or web address] Visit for screening mammogram; Asymptomatic premature menopause [...] Info) Description 03/24/2025 4:00 PM EST Appointment [facility], X-Ray - Main Hospital [address] [place] [address] Karson Beck MD [address] [place] [address] documented as of this encounter Visit Diagnoses [...] documented as of this encounter Care Teams Mems Integration Engineer Relationship Specialty Start Date End Date Jossie Hartley MD [address] [place] [address] PCP - General 05/16/17 10/15/17 Lula Harvey MD [address] [place] [address] [email or web address] PCP - General Family Medicine 10/16/17 01/31/22 Jossie Hartley MD [address] [place] [address] PCP - General Internal Medicine 02/01/22 Jossie Hartley MD [address] [place] [address] Insurance Assigned Provider 05/19/22 03/23/23 documented as of this encounter Additional Source Comments The information contained in this document represents components of the legal health record. It is not the complete legal health record.[facility]
--- OUTSIDE RECORDS SUMMARY | 2025-03-23 16:36 | XMS_ITS | Encounter Summary ---
Author Organization [facility] Address [address] [place] [address] Phone Care Team Providers Care Inspector Final Assembly Conveyor Line Name Role Phone Lula Harvey MD Primary Care Prov ider Naeem, Jossie A Primary Care Provider [phone] Naeem, Jossie A Unavailable [phone] Encounter Details Date Type Department Care Team (Late st Contact Info) Description 07/19/2021 Procedure Pass [address] [place] [address] Social History Tobacco Use Types Packs/Day Years [...] Encounters Date Type Department Care Team (Late Contact Info) Description 03/24/2025 4:00 PM EST Appointment [facility], X-Ray - [facility] [address] [place] [address] Karson Beck MD [address] [place] [address] documented as of this encounter Visit Diagnoses [...] documented as of this encounter Care Teams Inspector Final Assembly Conveyor Line Relationship Specialty Start Date End Date Lula Harvey MD [email or web address] PCP - General Family Medicine 10/16/17 01/31/22 Jossie Hartley MD [address] [place] [address] PCP - General Internal Medicine 02/01/22 Jossie Hartley MD [address] [place] [address] Insurance Assigned Provider 05/19/22 03/23/23 documented as of this encounter Additional Source Comments The information contained in this document represents components of the legal health record. It is not the complete legal health record.[facility]
--- OUTSIDE RECORDS SUMMARY | 2025-03-23 16:36 | XMS_ITS | Encounter Summary ---
Author Organization [facility] Address [address] [place] [address] Phone Care Team Providers Care Model Engine Mechanic Name Role Phone Lula Harvey MD Primary Care Prov ider Naeem, Jossie A Primary Care Provider [phone] Hartley, Jossie A Unavailable [phone] Encounter Details Date Type Department Care Team (Late Contact Info) Description 09/15/2021 Ancillary Orders [facility] Rheumatology [address] [place] [address] Scarlet Del Rosario PA [address] [place] [address] Rheumatoid arthritis involving multiple sites with positive [...] Info) Description 03/24/2025 4:00 PM EST Appointment [facility], X-Ray - [address] [address] Karson Beck MD [address] [place] [address] documented as of this encounter Results * [...] 3 views Compare to outside films from [facility] 10/16/2017 and today's images of the [...] 3 views Compare to outside films from [facility] 10/16/2017 and today'simages of the other [...] documented as of this encounter Care Teams Model Engine Mechanic Relationship Specialty Start Date End Date Lula Harvey MD [email or web address] PCP - General Family Medicine 10/16/17 01/31/22 Jossie Hartley MD [address] [place] [address] [email or web address] PCP - General Internal Medicine 02/01/22 Jossie Hartley MD [address] [place] [address] [email or web address] Insurance Assigned Provider 05/19/22 03/23/23 documented as of this encounter Additional Source Comments The information contained in this document represents components of the legal health record. It is not the complete legal health record.[facility]
--- OUTSIDE RECORDS SUMMARY | 2025-03-23 16:36 | XMS_ITS | Encounter Summary ---
Author Organization [facility] Address [address] [place] [address] [place] [address] Phone Care Team Providers Care Burner Machine Operator Name Role Phone Jossie Hartley MD Primary Care Provider [phone] Encounter Details Date Type Department Care Team (Latest Contact Info) Description 03/17/2024 Transcribe Orders Virtual Department [address] [place] [address] Mat Talley MD [address] [place] [address] Infection (Primary Dx) Social History Tobacco Use Types Packs/Day Years Used Date Smoking Tobacco: Former Cigarettes 1 1991 Smokeless Tobacco: Never Alcohol Use Standard [...] high school, GED, job training, learning the Prydeinig language, technical skills, or developing parenting skills)? [...] Info) Description 03/24/2025 4:00 PM EST Appointment [facility], X-Ray - [address] [address] Karson Landry MD [address] [place] [address] documented as of this encounter Results * XR WRIST 3 OR MORE VIEWS (RIGHT) (03/18/2024 8:06 AM EST) Anatomical Region Laterality Modality Wrist Right Computed Radiogr aphy 03/18/2024 2:11 PM EST Impressions 03/18/2024 2:13 PM EST No acute osseous abnormality. Mild degenerative changes. Narrative 03/18/2024 2:13 PM EST XR WRIST 3 OR MORE VIEWS (RIGHT) Referring clinician's provided indication for this examination in [facility]: Outside Radiology Order COMPARISON: XR HAND [...] clinician's provided indication for this examination in [facility]:Outside Radiology Order COMPARISON: XR HAND 3 OR [...] documented as of this encounter Care Teams Burner Machine Operator Relationship Specialty Start Date End Date Jossie Hartley MD [address] [place] [address], [address] [place] [address] [email or web address] PCP - General Internal Medicine 02/01/22 documented as of this encounter Additional Source Comments The information contained in this document represents components of the legal health record. It is not the complete legal health record.[facility]
--- OUTSIDE RECORDS SUMMARY | 2025-03-23 16:36 | XMS_ITS | Encounter Summary ---
Author Organization [facility] Address [address] [place] [address] Phone Care Team Providers Care Fish Technologist Name Role Phone Naeem, Jossie A Primary Care Provider [phone] Naeem, Jossie A MD Unavailable [phone] Encounter Details Date Type Department Care Team (Late st Contact Info) Description 05/26/2022 Procedure Pass [facility], [address] [address] Social History Tobacco Use Types Packs/Day Years [...] high school, GED, job training, learning the Egyptian language, technical skills, or developing parenting skills)? [...] Info) Description 03/24/2025 4:00 PM EST Appointment [facility], X-Ray - [address] [address] Karson Beck MD [address] [place] [address] documented as of this encounter Visit Diagnoses [...] documented as of this encounter Care Teams Fish Technologist Relationship Specialty Start Date End Date Jossie Hartley MD [address] [place] [address], [address] [place] [address] [email or web address] PCP - General Internal Medicine 02/01/22 Jossie Hartley MD [address] [place] [address], [address] [place] [address] [email or web address] Insurance Assigned Provider 05/19/22 03/23/23 documented as of this encounter Additional Source Comments The information contained in this document represents components of the legal health record. It is not the complete legal health record.[facility]
--- OUTSIDE RECORDS SUMMARY | 2025-03-23 16:36 | XMS_ITS | Clinical Summary ---
Author Organization [facility] Address [address] [place] [address] Phone Care Team Providers Care Credit Reporter Name Role Phone Jossie Kwan MD Primary Care Provider [phone] Allergies Active Allergy Reactions Criticality Noted Date Comments Erythromycin 09/16/2017 Fluticasone Dizziness,Nausea and /or Vomiting 06/17/2024 Gluten Protein 02/01/2022 Celiac disease Ibuprofen 02/01/2022 Stomach ulcer Montelukast 07/02/2023 Naproxen 02/01/2022 Stomach ulcer Penicillins Anaphylaxis High 09/16/2017 [place] Anaphylaxis High 02/01/2022 Cetirizine 07/02/2023 Pt states [...] Encounters Date Type Department Care Team Description 03/19/2025 Transcribe Orders [facility] [address] [place] [address] Karson Beck MD Rheumatoid arthritis with rheumatoid factor of multiple sites without organ or systems involvement (Primary Dx) 02/13/2025 8:28 AM EDT - 02/13/2025 11:59 PM EDT Hospital Encounter [facility] [address] [place] [address] Karson Beck MD Discharge Disposition: Home or Self Care 02/13/2025 Transcribe Orders [facility] [address] [place] [address] Karson Beck MD Encounter for long-term (current) use of medications (Primary Dx); Rheumatoid arthritis, involving unspecified site, unspecified whether rheumatoid factor present 01/11/2025 Orders Only [facility] Specimen Processing [address] [place] [address] Karson Beck MD Encounter for long-term (current) use of medications (Primary Dx) from Last 3 Months Immunizations Immunization Administration Dates Next Due COVID-19 (Pre-03/04) Pfizer Vaccine, mRNA, PF 02/16/2021 [id number] FORMULATION 06/09/2009 Influenza High-Dose Trivalen t Preservative Free IM 02/28/2018 Influenza Quadrivalent Prese rvative Free IM 04/24/2023,04/14/2020,03/03/2019,02/18,02/16/2016 Influenza, Unspecified Formulation 04/03/2013,,01/24/2010 Novel [id number], Injectable 06/09/2009 Pneumococcal conjugate PCV13 12/08/2014 Pneumococcal [...] Smoking Tobacco: Former Cigarettes 1 7 1 985 - 1991 Smokeless Tobacco: Never Tobacco Cessation:Counseling [...] high school, GED, job training, learning the Vietnamese language, technical skills, or developing parenting skills)? [...] 06/17/2024 1:57 PM EST Plan of Treatment Upcoming Encounters Date Type Department Care Team (Late st Contact Info) Description 03/24/2025 4:00 PM EST Appointment [facility], X-Ray - [address] [address] Karson Beck MD [address] [place] [address] Health Maintenance Due Date Last Done Comments ZOSTER VACCINES (1 of 2) 09/03/1986 COLOGUARD 09/03/2012 FIT TEST 09/03/2012 FOBT 09/03/2012 SIGMOIDOSCOPY 09/03/2012 VIRTUAL COLONOSCOPY 09/03/2012 RSV VACCINE (1 - Risk 50-74 years 1-dose series) 09/03/2017 MAMMOGRAM 07/06/2024 07/06/2022, 02/2 05/2021, 02/05/2019, Additional history exists INFLUENZA VACCINE (#1) 2024 , 04/24/2023, 04/14/2020, Additional history exists COVID-19 VACCINE ( season) 2025 10/20/2023, 04/24/2023, 02/16/2021, Additional history [...] SCREENING 06/22/2034 HEPATITIS C SCREENING Completed 09/15/2021 , 09/15/2021, 09/15/2021 SMOKING STATUS SCREENING (Once After 26 Yrs) Completed 06/22/2024 HEPATITIS A VACCINES Aged Out No long er eligible based on patient's age to complete this topic HIB VACCINES Aged Out No longer eligi ble based on patient's age to complete this topic IPV VACCINES Aged Out No longer eligi ble based on patient's age to complete this topic MENINGOCOCCAL VACCINES (ACWY) Aged Out No longer eligible based on patient's age to complete this topic MENINGOCOCCAL VACCINES (B) Aged Out N o longer eligible based on patient's age to complete this topic Medical Devices Implanted Type Area Machine Pack Assembler Device Identifier Shelf Expiration Date Model / Serial / Lot Clip Hemostasis Resolution 360 Lf Nonsterile 2.8mm Channel 360deg 235cm Bx/20ea - [id number] Implanted:Qty: 1 on 06/15/2019 by Odilon Fox MD at [facility] [employer] [id number] / / Procedures Procedure Name Priority Date/Time [...] unspecified site, unspecified whether rheumatoid factor present CREATININE WITH ESTIMATED GLOMERULAR FILTRATION RATE (EGFR) Routine 02/13/2025 8:59 AM EDT Encounter for long-term (current) use of medications Rheumatoid arthritis, involving unspecified site, unspecified whether rheumatoid factor present C-REACTIVE PROTEIN (CRP) Routine 02/13/2025 8:59 AM EDT Encounter for [...] unspecified site, unspecified whether rheumatoid factor present THYROID STIMULATING HORMONE (TSH) Routine 07/04/2024 9:27 AM EST Acquired hypothyroidism [...] EDT) CREATININE 0.70 0.5 - 1.5 mg/dL [facility] EGFR 101 >59 mL/min/1.7 3m2 [facility] Comment:Estimated glomerular filtration rate calculated using the CKD-EPI refit equation. Blood 02/13/2025 8:59 AM EDT 02/13/2025 9:05 AM EDT us Karson Beck MD LAB BLOOD BKR ORDERABLES Final Result Performing Organization Address [facility]/ZIP Co de Phone Number [address] [address] * Miscellaneous lab test (02/13/2025 8:59 AM EDT) TESTS REQUESTED MANUAL DIFF FOR CBC [facility] SPECIMEN/TUBE TYPE LAV [facility] REQUEST RECEIVED Request received. A separate order for the requested test will be generated by the laboratory. [facility] Blood 02/13/2025 8:59 AM EDT 02/13/2025 9:05 AM EDT us Karson Beck MD LAB BLOOD ORDERABLES Shelly l Result Performing Organization Address City/[facility]/ZIP Co de Phone Number [address] [address] * Sedimentation rate (ESR) (02/13/2025 8:59 AM EDT) ESR 6 0 - 30 mm/h [facility] Blood 02/13/2025 8:59 AM EDT 02/13/2025 9:05 AM EDT us Karson Beck MD LAB BLOOD BKR ORDERABLES Final Result [facility] [address] [place] [address] * (ABNORMAL) CBC and differential (02/13/2025 8:59 AM EDT) WBC 5.94 4.00 - 11.00 K/uL [facility] RBC 3.81(L) 4.00 - 5.20 M/uL [facility] HGB 12.7 12.0 - 16.0 g/dL [facility] HCT 38.9 36.0 - 46.0 % [facility] PLT 224 150 - 450 K/uL [facility] MCV 102.1(H) 80.0 - 100.0 fL [facility] MCH 33.3(H) 27.0 - 31.0 pg [facility] MCHC 32.6 32.0 - 36.0 g/dL [facility] RDW 12.7 11.5 - 14.5 % [facility] MPV 11.8 8.4 - 12.0 fL [facility] NRBC 0.00 0.00 /100 WBCs [facility] ABSOLUTE NRBC 0.00 0.00 K/uL [facility] DIFF METHOD Auto [facility] NEUTS 55.0 43.0 - 75.0 % [facility] Comment:Corrected on 02/13 A T 1122: previously reported as 52.0 LYMPHS 30.0 18.2 - 47.4 % [facility] Comment:Corrected on 02/13 A T 1122: previously reported as 32.3 MONOS 11.0 4.00 - 11.00 % [facility] Comment:Corrected on 02/13 A T 1122: previously reported as 10.3 EOS 4.0 0.0 - 8.0 % [facility] Comment:Corrected on 02/13 A T 1122: previously reported as 4.5 Granulocytes, immature (%) 0.7 0.0 - 0.9 % [facility] ABSOLUTE NEUTS 3.27 1.80 - 7.70 K/uL [facility] Comment:Corrected on 02/13 A T 1122: previously reported as 3.09 ABSOLUTE LYMPHS 1.78 1.00 - 3.10 K/uL [facility] Comment:Corrected on 02/13 A T 1122: previously reported as 1.92 ABSOLUTE MONOS 0.65 0.20 - 0.80 K/uL [facility] Comment:Corrected on 02/13 A T 1122: previously reported as 0.61 ABSOLUTE EOS 0.24 0.00 - 0.80 K/uL [facility] Comment:Corrected on 02/13 A T 1122: previously reported as 0.27 Granulocytes, immature 0.04 0.00 - 0.09 K/uL [facility] Blood 02/13/2025 8:59 AM EDT 02/13/2025 9:05 AM EDT us Karson Beck MD LAB BLOOD BKR ORDERABLES Edited Result - Final Performing Organization Address [facility]/ZIP Co de Phone Number [address] [address] * C-Reactive Protein (02/13/2025 8:59 AM EDT) C REACTIVE PROTEIN <3.0 0.0 - 4.0 mg/L [facility] Blood 02/13/2025 8:59 AM EDT 02/13/2025 9:05 AM EDT us Karson Beck MD LAB BLOOD BKR ORDERABLES Final Result Performing Organization Address [facility] Co de Phone Number [address] [address] * Alanine aminotransferase (ALT) (02/13/2025 8:59 AM EDT) ALT 25 0 - 40 U/L [facility] Blood 02/13/2025 8:59 AM EDT 02/13/2025 9:05 AM EDT us Karson Beck MD LAB BLOOD BKR ORDERABLES Final Result Performing Organization Address [facility]/ZIP Co de Phone Number [address] [address] * Aspartate aminotransferase (AST) (02/13/2025 8:59 AM EDT) AST 25 0 - 37 U/L [facility] Blood 02/13/2025 8:59 AM EDT 02/13/2025 9:05 AM EDT us Karson Beck MD LAB BLOOD BKR ORDERABLES Final Result Performing Organization Address [facility] Co de Phone Number [address] [address] * TSH (07/04/2024 9:27 AM EST) TSH 1.90 0.27 - 4.20 uIU/mL [facility] Blood 07/04/2024 9:27 AM EST 07/04/2024 9:33 AM EST us Jossie Kwan MD LAB BLOOD BKR ORDERABLES Shelly l Result Performing Organization Address [facility] Co de Phone Number [address] [address] * ENDOSCOPY, COLON (06/22/2024 10:02 AM EST) Narrative Transcriptions Odilon Fox MD - 06/22/2024 10:02 AM EST [facility] Patient Name: Tom Moulton Attending MD:: ODILON FOX MD, , Procedure Date: 06/22/2024 10:02 AM Date of : 1965 Age: 58 Admit Type: Outpatient Gender: Female Room: [place] [address] Referring MD: JOSSIE KWAN MD Exam Type: [...] monitored continuously. The Olympus adult variable colonoscope [id number] #5 was introduced through the anus and advanced to the cecum, identified by appendiceal orifice andileocecal valve. The colonoscopy was performed without difficulty. The patient tolerated the procedurewell. The quality of the bowel preparation was excellent. The quality of the bowel preparation was evaluated using the BBPS ([place] Bowel Preparation Scale)with scores of: Right Colon [...] 10:02 AM Procedure Code(s): --- Professional --- 47219, Colonoscopy, flexible; with biopsy, single or multiple --- Technical --- 09603, Colonoscopy, flexible; with biopsy, single or multiple Diagnosis Code(s): --- Professional --- Z86.010, Personal history of colonic polyps K64.8, Other hemorrhoids R19.4, Change in bowel habit --- Technical --- Z86.010, Personal history of colonic polyps K64.8, Other hemorrhoids R19.4, Change in bowel habit CPT copyright 2021 [employer]. All rights reserved. The codes documented in this report are preliminary and upon offshore diver reviewmay be revised to meet current compliance requirements. Procedure Date: 06/22/2024 10:02:[address] [place] [address] us Jossie A Naeem LOVE GI PROCEDURE ORDERABLES Final Result * (ABNORMAL) Lipid panel (11/08/2023 7:24 AM EDT) HDL 89 mg/dL [facility] Comment: Interpretation <40 mg/dL: Low HDL cholesterol (major risk factor for CHD) Greater than or equal to 60 mg/dL: High HDL cholesterol ( negative risk factor for CHD) HDL - cholesterol is affected by a number of factors, e.g. smoking, excerise, hormones, sex and age. CHOLESTEROL 238 0 - 240 mg/dL [facility] TRIGLYCERIDES 74 30 - 160 mg/dL [facility] LDL 134(H) 50 - 129 mg/dL [facility] Comment: LDL levels in terms of risk for coronary heart disease: <100 mg/dL: Optimal 100-129 mg/dL: Near or above optimal 130-159 mg/dL: Borderline high 160-189 mg/dL: High >190 mg/dL: Very High CARDIAC RISK RATIO 2.7(L) 3.3 - 4.4 [facility] Blood 11/08/2023 7:24 AM EDT 11/08/2023 7:26 AM EDT us KarsonMiki Beck MD LAB BLOOD BKR ORDERABLES Final Result [address] [address] * BI MAMMOGRAM SCREENING WITH TOMOSYNTHESIS WITH [...] made to multiple prior studies dating back 2009. BILATERAL BREASTS: No new masses, suspicious calcifications [...] Recommendation: Left Mammography Screening us Jossie A Naeem [facility] IM[facility] MG EXAMS Final Result * Pap Test (05/25/2022 12:00 AM EST) 05/25/2022 05/28/2022 10: 06 AM EST Narrative SEE NARRATIVE - 05/31/2022 3:24 PM EST [address] [address] Senior Staff Psychologist: Vita Manzo MD RAILWAY STATION MANAGER Cytology Report FINAL DIAGNOSIS A. PAP SMEAR [...] 59, 66, 68) Note: Testing performed by [facility] HR-HPV analysis. Clinical correlation is advised. This HPV test was performed at [facility], [address] [place] [address]. This test has been FDA approved for [facility] cervical cytology specimens. The accuracy and precision of this test for all other specimen sources has been verified in the Cytopathology Laboratory of the [facility] and has not been cleared or approved by the U.S. Food and Drug Administration. Clinical correlation is advised. CLINICAL HISTORY Date of Last Menstrual Period: Not Provided Menstrual History: Post Menopausal Other Clinical Conditions: Screening Pap SPECIMEN SOURCE A: PAP SMEAR (SUREPATH) CE Patient Name: TOM MOULTON : 1965 (Age: 56) Sex: F Institution: [facility] Location: [facility] Date of Collection: 05/25/2022 Date of Reported: 05/31/2022 15:24 Results to: Jossie Kwan MD, [facility], B Jossie Kwan MD CYTOLOGY ORDERABLES Final Res ult Performing Organization Address City[facility] Co de Phone Number SEE NARRATIVE * Hepatitis C antibody, qualitative (09/15/2021 9:04 AM EDT) HCV NON-REACTIV E NON-REACTI VE [facility] Blood 09/15/2021 9:04 AM EDT 09/15/2021 9:10 AM EDT us Scarlet MONTANO LAB BLOOD BKR ORDERABLES Final Result Performing Organization Address [facility] Co de Phone Number [facility] [address] [place], [place] [phone] from Last 3 Months or Most Recently Relevant to Health Maintenance Insurance [employer] PLUS PPO [employer] GIC PLUS PPO [employer] GIC PLUS PPO [employer] GIC PLUS PPO [employer] PLUS PPO [employer] PLUS PPO Member Subscriber Plan / P[facility]Present) Name:Dvar, Cat Relation to Subscriber:Self Name:Saige, Cat Payer ID:[id number] (NA) Type:PPO Address: [address] [place] [address] Care Teams Credit Reporter Relationship Specialty Start Date End Date Jossie Kwan MD [address] [place] [address], [address] [place] [address] [email or web address] PCP - General Internal Medicine 02/01/22 Additional Source Comments The information contained in this document represents components of the legal health record. It is not the complete legal health record.[facility]
--- OUTSIDE RECORDS SUMMARY | 2025-03-23 16:36 | XMS_ITS | Encounter Summary ---
Author Organization [facility] Address [address] [place] [address] Phone Care Team Providers Care Cut File Clerk Name Role Phone Lula Harvey MD Primary Care Prov ider Hartley, Jossie A Primary Care Provider [phone] Hartley, Jossie A MD Unavailable [phone] Encounter Details Date Type Department Care Team (Latest Contact Info) Description 08/03/2021 Transcribe Orders Virtual Department [address] [place] [address] Danuta Hutson PA-C [address] [place] [address] Orthopedics & Sports Medicine, [place], [place] [id number] [email or web address] Metal foreign body in abdomen (Primary Dx) [...] Info) Description 03/24/2025 4:00 PM EST Appointment [facility], X-Ray - [address] [place] [address] Karson Beck MD [address] [place] [address] documented as of this encounter Results * [...] documented as of this encounter Care Teams Cut File Clerk Relationship Specialty Start Date End Date Lula Harvey MD [email or web address] PCP - General Family Medicine 10/16/17 01/31/22 Jossie Hartley MD [address] [place] [address], [address] [place] [id number] PCP - General Internal Medicine 02/01/22 Jossie Hartley MD [address] [place] [phone] Insurance Assigned Provider 05/19/22 03/23/23 documented as of this encounter Additional Source Comments The information contained in this document represents components of the legal health record. It is not the complete legal health record.[facility]
--- OUTSIDE RECORDS SUMMARY | 2025-03-23 16:36 | XMS_ITS | Encounter Summary ---
Author Organization [facility] Address [address] [place] [address] [place] [phone] Phone Care Team Providers Care Electric Motor Tester Assembler Name Role Phone Jossie Hartley MD Primary Care Provider [phone] Encounter Details Date Type Department Care Team (Late st Contact Info) Description 03/19/2025 Transcribe Orders Virtual Department [address] [place] [address] Karson Beck MD [address] [place] [address] Rheumatoid arthritis with rheumatoid factor of multiple sites without organ or systems involvement (Primary Dx) Social History Tobacco Use Types Packs/Day Years Used Date Smoking Tobacco: Former Cigarettes 1 7 5 - 1991 Smokeless Tobacco: Never Alcohol Use [...] high school, GED, job training, learning the Armenian language, technical skills, or developing parenting skills)? [...] Info) Description 03/24/2025 4:00 PM EST Appointment [facility], X-Ray - [address] [address] Karson Beck MD [address] [place] [address] Scheduled Orders Name Type Priority Associated Diagnoses Orde r Schedule XR Wrist (Right) Imaging Routine Rheumatoid arthritis with rheumatoid factor of multiple sites without organ or systems involvement Expected: 03/19/2025, Expires: 03/19/2026 documented as of this encounter Visit Diagnoses Diagnosis Rheumatoid arthritis with rheumatoid factor of multiple sites without organ or systems involvement- Primary documented in this encounter Additional Health Concerns Assessment Noted Time PHQ-2 Depression Total Score: 0 08/11/19 25 1:54 PM EDT documented as of this encounter Care Teams Electric Motor Tester Assembler Relationship Specialty Start Date End Date Jossie Hartley MD [address] [place] [address], [address] [place] [address] [email or web address] PCP - General Internal Medicine 02/01/22 documented as of this encounter Additional Source Comments The information contained in this document represents components of the legal health record. It is not the complete legal health record.[facility]
--- OUTSIDE RECORDS SUMMARY | 2025-03-23 16:36 | XMS_ITS | Clinical Summary ---
Author Organization [facility] Address [address] [place] [phone] Phone Care Team Providers Care Extrusion Process Operator Name Role Phone Jossie Hartley MD Primary Care Provider [phone] Allergies Active Allergy Reactions Criticality Noted Date [...] complete this topic Insurance [employer] [id number] Care Teams Extrusion Process Operator Relationship Specialty Start Date End Date Jossie Hartley MD [address] [place] [address], [address] [place] [address] PCP - General Internal Medicine 08/12/24
--- OUTSIDE RECORDS SUMMARY | 2025-03-23 16:36 | XMS_ITS | Encounter Summary ---
Author Organization [facility] Address [address] [place] [address] Phone Care Team Providers Care Industrial Controller Name Role Phone Lula Harvey MD Primary Care Prov ider Naeem, Jossie A Primary Care Provider [phone] Hartley, Jossie A MD Unavailable [phone] Encounter Details Date Type Department Care Team (Late Contact Info) Description 06/15/2019 Procedure Pass [facility] Endoscopy Admitting Dept Virtual Department [address] [place] [address] Social History Tobacco Use Types Packs/Day Years [...] Info) Description 03/24/2025 4:00 PM EST Appointment [facility], X-Ray - [facility] [address] [place] [address] Karson Beck MD [address] [place] [address] documented as of this encounter Visit Diagnoses [...] documented as of this encounter Care Teams Industrial Controller Relationship Specialty Start Date End Date Lula Harvey MD [email or web address] PCP - General Family Medicine 10/16/17 01/31/22 Jossie Hartley MD [address] [place] [address] PCP - General Internal Medicine 02/01/22 Jossie Hartley MD [address] [place] [phone] Insurance Assigned Provider 05/19/22 03/23/23 documented as of this encounter Additional Source Comments The information contained in this document represents components of the legal health record. It is not the complete legal health record.[facility]
== END 2025-03-23 15:44 | disposition home or self-care (01) ==
LOC: HO.RHES 14:51
PROVIDERS: PCP Internal Medicine; Visit Provider Internal Medicine Rheumatology
DX: M05.79 Rheumatoid arthritis with rheumatoid factor of multiple sites without organ or systems involvement (principal); M85.80 Other specified disorders of bone density and structure, unspecified site; M25.531 Pain in right wrist; Z79.899 Other long term (current) drug therapy
CPT/HCPCS: 20605; 99213

== ENCOUNTER → 2025-03-23 14:50 | Outpatient (BNVA) | payer OTHER, SELFPAY | PROVIDERS: PCP Internal Medicine; Visit Provider Internal Medicine Rheumatology | DX: M25.531 Pain in right wrist (principal) | CPT/HCPCS: 20605; J2003; J3301 ==